=== PATIENT | male | born 1955 | race African-American/Black ===

== ENCOUNTER 2017-04-16 18:31 | Observation (INO) | payer SELFPAY ==
[~2017-04-16] VITALS: Ht 170.2 cm; Wt 50.0 kg
[~2017-04-16 18:31] MED LIST: AMIO200T PO; Aspirin Chew PO; CARV6.25 PO; FERR325T PO; FURO1TAB60 PO; LIPI80TA PO; PLAV75TA29 PO; POTA-163 PO; THERM PO
[2017-04-16 18:32] VITALS: O2SAT 99
[2017-04-16 19:21] VITALS: BP 150/77; PULSE 78; RESP 16; TEMP 98.5; O2SAT 100
--- NOTE | 2017-04-16 19:34 | PD ---
HPI Chief Complaint: syncope Time Seen by Provider: 19:18 Travel History International Travel<30 days: No Contact w/Intl Traveler<30days: No Traveled to known affect area: No History of Present Illness HPI 62-year-old male came to the emergency room with history of recurrent syncopal episode. His daughter brought him and was really concerned about him. Patient on the other hand says he falls because his knees buckle out. He says it happens all the time when he stands up quickly. Upon reviewing his past medical history it was noticed that patient had a stent put in along with double vessel bypass surgery less than a year ago. He continues to smoke. He is not taking any of his medications like he supposed to. Upon asking he doesn' t even remember the names of them. He says he takes them when he has money to buy. Interestingly it was noticed that patient is on amiodarone. I am not quite sure the reason for the amiodarone and neither does the patient. He was supposed to follow up with cardiology which she did not since the appointment was in the afternoon and it was too hot. His daughter told me later as I stepped out of the room that patient also drinks a lot. He has been stubborn in spite of the fact he has been passing out with currently doesn't want to come to the emergency room. [facility] Past Medical History Narrative Medical List of his past medical, surgical, social and family history is reviewed from the nursing note. Diminished Hearing: Yes (RIGHT EAR DIMINISHED ) Hypertension: Yes Social History Alcohol Use: Yes (1-2 beers daily) Tobacco Use: Yes Substance Use: No Allergies-Medications (Allergen,Severity, Reaction): Coded Allergies: No Known Allergies (Unverified , 04/16/17) Comments No known drug allergies. Reported Meds & Prescriptions Reported Meds & Active Scripts Active Plavix (Clopidogrel Bisulfate) 75 Mg Tab 75 Mg PO DAILY Lipitor (Atorvastatin Calcium) 80 Mg Tab 80 Mg PO HS Thera M Plus (Multivitamins/Minerals Therapeutic) 1 Tab 1 Tab PO DAILY [Aspirin Chew] 81 MG Chew 81 Mg PO DAILY Narrative Medication List of his home medications reviewed from the nursing note. Review of Systems Except as stated in HPI: all other systems reviewed are Neg Physical Exam Narrative GENERAL: Awake, alert, no obvious distress SKIN: Focused skin assessment warm/dry. HEAD: Atraumatic. Normocephalic. EYES: Pupils equal and round. No scleral icterus. No injection or drainage. ENT: No nasal bleeding or discharge. Mucous membranes pink and moist. NECK: Trachea midline. No JVD. CARDIOVASCULAR: Regular rate and rhythm. No murmur appreciated. RESPIRATORY: No accessory muscle use. Clear to auscultation. Breath sounds equal bilaterally. GASTROINTESTINAL: Abdomen soft, non-tender, nondistended. Hepatic and splenic margins not palpable. MUSCULOSKELETAL: No obvious deformities. No clubbing. No cyanosis. No edema. NEUROLOGICAL: Awake and alert. No obvious cranial nerve deficits. Motor grossly within normal limits. Normal speech. PSYCHIATRIC: Appropriate mood and affect; insight and judgment normal. Data Data Last Documented VS Vital Signs Date Time Temp Pulse Resp B/P (MAP) Pulse Ox O2 Delivery O2 Flow Rate FiO2 04/16/17 22:15 80 18 132/74 (93) 99 Room Air 04/16/17 19:21 98.5 Orders Orders Electrocardiogram (04/16/17 19:46) Basic Metabolic Panel (Bmp) (04/16/17 19:46) Ckmb (Isoenzyme) Profile (04/16/17 19:46) Complete Blood Count With Diff (04/16/17 19:46) Magnesium (Mg) (04/16/17 19:46) Prothrombin Time / Inr (Pt) (04/16/17 19:46) Act Partial Throm Time (Ptt) (04/16/17 19:46) Troponin I (04/16/17 19:46) Chest, Single Ap (04/16/17 19:46) Ecg Monitoring (04/16/17 19:46) Bilateral Bp Monitoring (04/16/17 19:46) Iv Access Insert/Monitor (04/16/17 19:46) Oximetry (04/16/17 19:46) Oxygen Administration (04/16/17 19:46) Sodium Chloride 0.9% Flush (Ns Flush) (04/16/17 20:00) Admit Order (Ed Use Only) (04/16/17 22:34) Labs Laboratory Tests Test 04/16/17 20:05 White Blood Count 4.0 TH/MM3 Red Blood Count 3.22 MIL/MM3 Hemoglobin 11.2 GM/DL Hematocrit 33.6 % Mean Corpuscular Volume 104.4 FL Mean Corpuscular Hemoglobin 34.9 PG Mean Corpuscular Hemoglobin Concent 33.5 % Red Cell Distribution Width 11.6 % Platelet Count 73 TH/MM3 Mean Platelet Volume 10.7 FL Neutrophils (%) (Auto) 64.0 % Lymphocytes (%) (Auto) 22.8 % Monocytes (%) (Auto) 11.8 % Eosinophils (%) (Auto) 0.6 % Basophils (%) (Auto) 0.8 % Neutrophils # (Auto) 2.5 TH/MM3 Lymphocytes # (Auto) 0.9 TH/MM3 Monocytes # (Auto) 0.5 TH/MM3 Eosinophils # (Auto) 0.0 TH/MM3 Basophils # (Auto) 0.0 TH/MM3 CBC Comment AUTO DIFF Differential Comment AUTO DIFF CONFIRMED Prothrombin Time 12.6 SEC Prothromb Time International Ratio 1.1 RATIO Activated Partial Thromboplast Time 28.6 SEC Blood Urea Nitrogen 4 MG/DL Creatinine 1.02 MG/DL Random Glucose 93 MG/DL Calcium Level 8.6 MG/DL Magnesium Level 1.1 MG/DL Sodium Level 132 MEQ/L Potassium Level 3.8 MEQ/L Chloride Level 99 MEQ/L Carbon Dioxide Level 21.4 MEQ/L Anion Gap 12 MEQ/L Estimat Glomerular Filtration Rate 90 ML/MIN Total Creatine Kinase 49 U/L Troponin I LESS THAN 0.02 NG/ML MDM Medical Decision Making Medical Screen Exam Complete: Yes Emergency Medical Condition: Yes Medical Record Reviewed: Yes Interpretation(s) Twelve-lead EKG was reviewed by me. Normal sinus rhythm, normal axis, nonspecific ST-T wave changes. Heart rate of 77 bpm. Differential Diagnosis Cardiac arrhythmia, non-STEMI, electrolyte abnormality Narrative Course 10:15 PM blood test results of back and within normal limit. However given his significant past medical history and noncompliance with his medications that would like to admit the patient overnight for observation on telemetry and if possible to be consulted by cardiology. Awaiting for the hospitalist to call back. Procedures EKG Prior to Arrival: No Diagnosis Primary Impression: Syncopal episodes Qualified Codes: R55 - Syncope and collapse Admitting Information Admitting Physician Requests: Observation Nereida Huddleston MD Apr 16, 2017 19:34
[2017-04-16 19:58] VITALS: O2SAT 100
[2017-04-16] MEDS ORDERED: SODIUM CHLORIDE 0.9% FLUSH 10 ML FLUSH IVF PRN (20:00)
[2017-04-16 20:20] VITALS: BP 138/79; PULSE 74; RESP 18; O2SAT 100
[2017-04-16 20:50] LABS: AUTOMATED NEUTROPHIL # 2.5 TH/MM3 (1.8-7.7); BASOPHIL % 0.8 % (0.0-2.0); EOSINOPHIL % 0.6 % (0.0-4.0); HEMATOCRIT 33.6 % (39.0-51.0); LYMPH % 22.8 % (9.0-44.0); LYMPHOCYTE # 0.9 TH/MM3 (1.0-4.8); MEAN CELL VOLUME 104.4 FL (80.0-100.0); MEAN CORPUSCULAR HEMOGLOBIN 34.9 PG (27.0-34.0); MEAN CORPUSCULAR HGB CONC 33.5 % (32.0-36.0); MONO % 11.8 % (0.0-8.0); PLATELET COUNT 73 TH/MM3 (150-450); RED BLOOD COUNT 3.22 MIL/MM3 (4.50-5.90); RED CELL DISTRIBUTION WIDTH 11.6 % (11.6-17.2)
[2017-04-16 21:02] LABS: APTT (PATIENT) 28.6 SEC (24.3-30.1); HEMO FLAGS AUTO DIFF; INTERNATIONAL NORMALIZED RATIO 1.1 RATIO; PROTHROMBIN TIME - PATIENT 12.6 SEC (9.8-11.6)
--- NOTE | 2017-04-16 21:08 | RADRPT ---
EXAM DATE/TIME: 04/16/2017 19:59 [facility] COMPARISON: CHEST SINGLE AP, August 01, 2016, 5:18. INDICATIONS : Chest pain. MEDICAL HISTORY : Myocardial infarction. Hypertension Coronary artery disease. SURGICAL HISTORY : Double bypass. ENCOUNTER: Initial ACUITY: 1 day PAIN SCORE: 0/10 LOCATION: Bilateral chest FINDINGS: A single view of the chest demonstrates the lungs to be symmetrically aerated without evidence of mas s, infiltrate or effusion. Patient is status post sternotomy. The cardiomediastinal contours are unr emarkable. Osseous structures are intact. CONCLUSION: No acute disease. Alex Alves MD on April 16, 2017 at 21:06 Board Certified Radiologist. This report was verified electronically.
[2017-04-16 21:12] LABS: ANION GAP 12 MEQ/L (5-15); BICARBONATE 21.4 MEQ/L (21.0-32.0); BLOOD UREA NITROGEN 4 MG/DL (7-18); CHLORIDE 99 MEQ/L (98-107); GLOMERULAR FILTRATION RATE 90 ML/MIN (>89); MAGNESIUM 1.1 MG/DL (1.5-2.5); POTASSIUM 3.8 MEQ/L (3.5-5.1); SODIUM (NA) 132 MEQ/L (136-145)
[2017-04-16 21:25] LABS: CREATINE KINASE 49 U/L (39-308)
[2017-04-16 21:30] VITALS: BP 140/72; PULSE 78; RESP 18; O2SAT 100
[2017-04-16 21:38] LABS: SCAN/DIFF AUTO DIFF CONFIRMED
[2017-04-16 22:15] VITALS: BP 132/74; PULSE 80; RESP 18; O2SAT 99
[2017-04-16] MEDS ORDERED: NALOXONE HCL 0.4 MG/ML AMP IV PRN (22:45)
[2017-04-16] MEDS ORDERED: SODIUM CHLORIDE 0.9% FLUSH 10 ML FLUSH IV FLUSH PRN (22:45)
[2017-04-16] MEDS: MAGNESIUM SULFATE 1 GM PREMIX 100 ML IV SCH ×2 (23:25→23:45)
--- NOTE | 2017-04-16 23:33 | RADRPT ---
EXAM DATE/TIME: 04/16/2017 22:48 [facility] COMPARISON: US CAROTID ARTERIES, July 24, 2016, 14:32. INDICATIONS : Syncope. MEDICAL HISTORY : Myocardial infarction. Hypertension. Hearing in right ear diminished. SURGICAL HISTORY : Cardiac catheterization. ENCOUNTER: Subsequent ACUITY: 1 day PAIN SCORE: 0/10 LOCATION: Bilateral neck PEAK SYSTOLIC VELOCITIES (cm/sec): ICA/CCA RATIO: Right: 1.6 Left: 1.2 ICA: Right: 88 Left: 83 CCA: Right: 70 Left: 74 ECA: Right: 60 Left: 91 VERTEBRAL: Right: 38 antegrade Left: 34 antegrade Elevated flow velocities and ICA/CCA ratios have been found to correlate with increased degrees of vessel stenosis, calculated as percentage of diameter relative to a normal segment of distal ICA/CCA FINDINGS: RIGHT CAROTID: There is mild calcified and noncalcified plaque throughout the common carotid artery and a moderate c alcified plaque in the proximal internal carotid artery. LEFT CAROTID: There is mild to moderate calcified plaque in the carotid bulb. There is an small thickening in the c ommon carotid artery. VERTEBRAL ARTERIES: Antegrade flow is seen in both vertebral arteries. MISCELLANEOUS: None. CONCLUSION: 1. Mild/moderate atherosclerotic disease bilaterally, as above. However, no significant stenosis is i dentified within either internal carotid artery (less than 50% stenosis). 2. There is antegrade blood flow within both vertebral arteries. Alex Reyes MD on April 16, 2017 at 23:29 Board Certified Radiologist. This report was verified electronically.
[2017-04-17] VITALS (8 sets, daily range): BP systolic 98–126; BP diastolic 58–74; PULSE 70–78; RESP 16–17; TEMP 97.4–98.6; O2SAT 96–100
[2017-04-17 02:21] LABS: CREATINE KINASE 44 U/L (39-308)
--- NOTE | 2017-04-17 05:16 | HHI.HP ---
[facility] No Primary Care Physician Admission Diagnosis syncope Diagnoses: Chief Complaint: fall at home Travel History International Travel<30 Days: No Contact w/Intl Traveler <30 Da: No Traveled to Known Affected Are: No History of Present Illness Written by SAMPSON Parisi acting as scribe for [Harlan] on 04/17/17 at 05: 09. 62 y/o male with a history of HTN, [place], presented to the ED after a fall at home. He states he woke up and got out of bed to fast and he fell. Denies any loc or hitting his head. Prior to fall he denies any chest pain, dizziness or sob. He takes multiple medications at home but does not know the names or reason he takes them. He denies any fever, chills, dysuria or headaches. He states he has not follow up with any doctors. 07/2016 echo showed EF 50-55%, mild tricuspid regurgitation Review of Systems Except as stated in HPI: all other systems reviewed are Neg Past Family Social History Past Medical History HTN MA Past Surgical History CABG Reported Medications Reported Meds & Active Scripts Active Plavix (Clopidogrel Bisulfate) 75 Mg Tab 75 Mg PO DAILY Coreg (Carvedilol) 6.25 Mg Tab 6.25 Mg PO BID Lipitor (Atorvastatin Calcium) 80 Mg Tab 80 Mg PO HS Amiodarone (Amiodarone HCl) 200 Mg Tab 200 Mg PO Q12HR Thera M Plus (Multivitamins/Minerals Therapeutic) 1 Tab 1 Tab PO DAILY [Aspirin Chew] 81 MG Chew 81 Mg PO DAILY Allergies: Coded Allergies: No Known Allergies (Unverified , 04/16/17) Active Ordered Medications Current Medications Medications (Trade) Dose Ordered Sig/Curt Route Start Time Stop Time Status Last Admin (NS Flush) 2 ml UNSCH PRN IV FLUSH 04/16/17 22:45 (NS Flush) 2 ml BID IV FLUSH 04/17/17 09:00 (Narcan Inj) 0.4 mg UNSCH PRN IV 04/16/17 22:45 Family History Patient denies any family history, no heart disease or cancer. Social History Tobacco use: 1/2 PPD Alcohol use: 3-4 Beer daily Illicit drug use: Denies Physical Exam Vital Signs Vital Signs Date Time Temp Pulse Resp B/P (MAP) Pulse Ox O2 Delivery O2 Flow Rate FiO2 04/17/17 01:58 70 04/17/17 00:05 97.8 73 17 112/72 (85) 99 04/16/17 23:40 04/16/17 20:20 74 18 138/79 (98) 100 Room Air 04/16/17 19:59 100 Room Air 04/16/17 19:58 100 Room Air 04/16/17 19:21 98.5 78 16 150/77 (101) 100 04/16/17 18:32 128 36 99 Room Air Physical Exam GENERAL: This is a well-nourished, grumpy man, who does not want to be bothered. SKIN: No rashes, ecchymoses or lesions. Cool and dry. HEAD: Atraumatic. Normocephalic. EYES: Pupils equal round and reactive. ENT: Nose without bleeding, purulent drainage or septal hematoma. Airway patent. NECK: Trachea midline. No JVD or lymphadenopathy. CARDIOVASCULAR: Regular rate and rhythm without murmurs, gallops, or rubs. RESPIRATORY: Clear to auscultation. Breath sounds equal bilaterally. No wheezes , rales, or rhonchi. GASTROINTESTINAL: Abdomen soft, non-tender, nondistended. No hepato-splenomegaly , or palpable masses. No guarding. MUSCULOSKELETAL: Extremities without clubbing, cyanosis, or edema. No joint tenderness, effusion, or edema noted. No calf tenderness. NEUROLOGICAL: Awake and alert. Motor and sensory grossly within normal limits. Normal speech. Laboratory Laboratory Tests Test 04/16/17 20:05 04/17/17 01:45 White Blood Count 4.0 Red Blood Count 3.22 Hemoglobin 11.2 Hematocrit 33.6 Mean Corpuscular Volume 104.4 Mean Corpuscular Hemoglobin 34.9 Mean Corpuscular Hemoglobin Concent 33.5 Red Cell Distribution Width 11.6 Platelet Count 73 Mean Platelet Volume 10.7 Neutrophils (%) (Auto) 64.0 Lymphocytes (%) (Auto) 22.8 Monocytes (%) (Auto) 11.8 Eosinophils (%) (Auto) 0.6 Basophils (%) (Auto) 0.8 Neutrophils # (Auto) 2.5 Lymphocytes # (Auto) 0.9 Monocytes # (Auto) 0.5 Eosinophils # (Auto) 0.0 Basophils # (Auto) 0.0 CBC Comment AUTO DIFF Differential Comment AUTO DIFF CONFIRMED Prothrombin Time 12.6 Prothromb Time International Ratio 1.1 Activated Partial Thromboplast Time 28.6 Blood Urea Nitrogen 4 Creatinine 1.02 Random Glucose 93 Calcium Level 8.6 Magnesium Level 1.1 Sodium Level 132 Potassium Level 3.8 Chloride Level 99 Carbon Dioxide Level 21.4 Anion Gap 12 Estimat Glomerular Filtration Rate 90 Total Creatine Kinase 49 44 Troponin I LESS THAN 0.02 LESS THAN 0.02 Result Diagram: 04/16/17200404/16/172004 Imaging Last Impressions Chest X-Ray 04/16/17 194 Signed Impressions: Service Date/Time: March 19:59 - CONCLUSION: No acute disease. Alex Alves MD Carotid Artery Ultrasound 04/16/17 0000 Signed Impressions: Service Date/Time: March 22:48 - CONCLUSION: 1. Mild/moderate atherosclerotic disease bilaterally, as above. However, no significant stenosis is identified within either internal carotid artery (less than 50%% stenosis). 2. There is antegrade blood flow within both vertebral arteries. MD Mary Denis VTE Risk Assessment Mary VTE Risk Assessment: Mod/High Risk (score >= 2) Caprini Risk Assessment Model Point Value = 1 Point Value = 2 Point Value = 3 Point Value = 5 Age 41-60 Minor surgery BMI > 25 kg/m2 Swollen legs Varicose veins or History of unexplained or recurrent spontaneous Oral contraceptives or hormone replacement Sepsis (< 1 month) Serious lung disease, including pneumonia (< 1 month) Abnormal pulmonary function Acute myocardial infarction Congestive heart failure (< 1 month) History of inflammatory bowel disease Medical patient at bed rest Age 61-74 Arthroscopic surgery Major open surgery (> 45 min) Laparoscopic surgery (> 45 min) Malignancy Confined to bed (> 72 hours) Immobilizing plaster cast Central venous access Age >= 75 History of VTE Family history of VTE Factor V Leiden Prothrombin [id number] Lupus anticoagulant Anticardiolipin antibodies Elevated serum homocysteine Heparin-induced thrombocytopenia Other congenital or acquired thrombophilia Stroke (< 1 month) Elective arthroplasty Hip, pelvis, or leg fracture Acute spinal cord injury (< 1 month) Prophylaxis Regimen Total Risk Factor Score Risk Level Prophylaxis Regimen 0-1 Low Early ambulation 2 Moderate Order ONE of the following: *Sequential Compression Device (SCD) *Heparin 5000 units SQ BID 3-4 Higher Order ONE of the following medications: *Heparin 5000 units SQ TID *Enoxaparin/Lovenox 40 mg SQ daily (WT < 150 kg, CrCl > 30 mL/min) *Enoxaparin/Lovenox 30 mg SQ daily (WT < 150 kg, CrCl > 10-29 mL/min) *Enoxaparin/Lovenox 30 mg SQ BID (WT < 150 kg, CrCl > 30 mL/min) AND/OR *Sequential Compression Device (SCD) 5 or more Highest Order ONE of the following medications: *Heparin 5000 units SQ TID (Preferred with Epidurals) *Enoxaparin/Lovenox 40 mg SQ daily (WT < 150 kg, CrCl > 30 mL/min) *Enoxaparin/Lovenox 30 mg SQ daily (WT < 150 kg, CrCl > 10-29 mL/min) *Enoxaparin/Lovenox 30 mg SQ BID (WT < 150 kg, CrCl > 30 mL/min) AND *Sequential Compression Device (SCD) Assessment and Plan Problem List: (1) Syncopal episodes ICD Code: R55 - Syncope and collapse Status: Acute (2) Tobacco abuse ICD Code: Z72.0 - Tobacco use Status: Acute Assessment and Plan 62 y/o male with a history of HTN, MA, presented to the ED after a fall at home. He states he woke up and got out of bed to fast and he fell. Syncope, acute, troponin .02 x 2 EKG reviewed and shows NSR -2D echo ordered -Carotid US ordered, reviewed, and shows mild/moderate atherosclerotic disease bilaterally no significant stenosis. -Consult cardiology for recommendations on medications -Third troponin pending -Serial EKGs Hypomagnesium, mag 1.1 -Supplementation ordered, trend magnesium replace as needed Tobacco abuse, chronic -Counseled on quitting Chronic medical conditions: Will reorder home Meds once they are verified with family DVT prophylaxis: Lovenox This note was transcribed by marco [Gavi Carrasco]. I, Dr. Haleigh Claros personally performed the history, physical exam, and medical decision making; and confirmed the accuracy of the information in the transcribed note. Authenticated by Dr. Haleigh Claros on 04/17/17 at 05:09. Discussed Condition With Patient and ED physician Problem Qualifiers (1) Syncopal episodes: Qualified Codes: R55 - Syncope and collapse Gavi Carrasco Apr 17, 2017 05:16 Haleigh Claros MD Apr 17, 2017 09:40
[2017-04-17] MEDS ORDERED: ENOXAPARIN SODIUM 40 MG/0.4 ML SYRINGE SQ SCH (07:00)
[2017-04-17] MEDS ORDERED: SODIUM CHLORIDE 0.9% FLUSH 10 ML FLUSH IV FLUSH SCH (09:00)
[2017-04-17 09:03] LABS: BASOPHIL % 0.5 % (0.0-2.0); EOSINOPHIL % 0.9 % (0.0-4.0); LYMPH % 16.8 % (9.0-44.0); LYMPHOCYTE # 0.7 TH/MM3 (1.0-4.8); MEAN CELL VOLUME 104.2 FL (80.0-100.0); MEAN CORPUSCULAR HEMOGLOBIN 35.6 PG (27.0-34.0); MEAN CORPUSCULAR HGB CONC 34.2 % (32.0-36.0); MONO % 8.4 % (0.0-8.0); NEUT % 73.4 % (16.0-70.0); PLATELET COUNT 65 TH/MM3 (150-450); RED BLOOD COUNT 3.27 MIL/MM3 (4.50-5.90); RED CELL DISTRIBUTION WIDTH 11.7 % (11.6-17.2); WHITE BLOOD COUNT 4.1 TH/MM3 (4.0-11.0)
[2017-04-17 09:05] LABS: HEMO FLAGS AUTO DIFF
[2017-04-17 09:25] LABS: BICARBONATE 23.1 MEQ/L (21.0-32.0); POTASSIUM 3.6 MEQ/L (3.5-5.1)
[2017-04-17] MEDS ORDERED: ASPIRIN 81 MG CHEW TAB CHEW SCH (09:30)
[2017-04-17] MEDS ORDERED: SODIUM CHLOR 0.9% 1000 ML INJ 1,000 ML IV ONE (09:30)
[2017-04-17 10:13] LABS: SCAN/DIFF AUTO DIFF CONFIRMED
[2017-04-17 11:53] LABS: MAGNESIUM 1.8 MG/DL (1.5-2.5)
[2017-04-17 11:55] LABS: CREATINE KINASE 45 U/L (39-308)
--- NOTE | 2017-04-17 11:55 | HHI.PR ---
Subjective Remarks Follow-up for near syncope. The patient states that he has no complaints and there is nothing wrong with him. He states that he stood up too quickly and went down to his knees. He denies having any lightheadedness or dizziness with that. He states because he felt his knees his daughters thought that he might of passed out, but he adamantly denies passing out or losing consciousness. He denies any injury from falling. He denies any chest pain or shortness of breath. He was found to be orthostatic. He denies any reason why he might be dehydrated; no nausea, vomiting, diarrhea. Patient denies any having any symptoms, specifically lightheaded and dizziness, when getting out of bed with PT today. Objective Vitals Vital Signs Date Time Temp Pulse Resp B/P (MAP) Pulse Ox O2 Delivery O2 Flow Rate FiO2 04/17/17 11:21 98.5 72 16 109/69 (82) 96 04/17/17 10:55 75 04/17/17 07:50 98.6 75 16 119/74 (89) 96 106/63 (77) 98/67 (77) 04/17/17 07:19 98.3 78 16 111/66 (81) 100 04/17/17 05:30 97.4 71 17 105/58 (74) 99 04/17/17 01:58 70 04/17/17 00:05 97.8 73 17 112/72 (85) 99 04/16/17 23:40 04/16/17 22:15 80 18 132/74 (93) 99 Room Air 04/16/17 21:30 78 18 140/72 (94) 100 Room Air 04/16/17 20:20 74 18 138/79 (98) 100 Room Air 04/16/17 19:59 100 Room Air 04/16/17 19:58 100 Room Air 04/16/17 19:21 98.5 78 16 150/77 (101) 100 04/16/17 18:32 128 36 99 Room Air Result Diagram: 04/17/17 0835 04/17/17 0835 Imaging Last Impressions Chest X-Ray 04/16/171945 Signed Impressions: Service Date/Time: March 19:59 - CONCLUSION: No acute disease. Alex Alves MD Carotid Artery Ultrasound 04/16/17 0000 Signed Impressions: Service Date/Time: March 22:48 - CONCLUSION: 1. Mild/moderate atherosclerotic disease bilaterally, as above. However, no significant stenosis is identified within either internal carotid artery (less than 50%% stenosis). 2. There is antegrade blood flow within both vertebral arteries. Alex Reyes MD Objective Remarks GENERAL: Well-developed well-nourished. In no acute distress. SKIN: Warm and dry. No lesions noted. HEENT: Normocephalic. Pupils equal and round. Mucous membranes pink and moist. CARDIOVASCULAR: Regular rate and rhythm. No murmur appreciated. RESPIRATORY: No accessory muscle use. Clear to auscultation. Breath sounds equal bilaterally. GASTROINTESTINAL: Abdomen soft, non-tender, nondistended. Bowel sounds x4. MUSCULOSKELETAL: No obvious deformities. No clubbing or cyanosis. No edema. NEUROLOGICAL: Awake and alert. No focal neurological deficits. Moves upper and lower extremities spontaneously. Normal speech. PSYCHIATRIC: Cantankerous mood and affect; insight and judgment normal. A/P Problem List: (1) Syncopal episodes ICD Code: R55 - Syncope and collapse Status: Acute (2) Tobacco abuse ICD Code: Z72.0 - Tobacco use Status: Chronic Assessment and Plan 62 y/o male with a history of HTN, [place], presented to the ED after a fall at home. He states he woke up and got out of bed to fast and he fell. Near syncope: Symptoms sound like orthostasis. The patient was found to have positive orthostatic vital signs. He denies any lightheadedness, dizziness, chest pain, shortness of breath. Reviewed: EKG shows NSR. Carotid US shows mild/moderate atherosclerotic disease bilaterally no significant stenosis. Troponins negative 3. -Cardiology consulted, discussed with, no specific recommendations -Give IVF bolus and follow-up orthostatic vital signs. Counseled on slow transitions. -PT consulted, no restrictions History coronary artery disease: Question medication compliance. -Discussed with Dr. Salinas, would at least continue the patient on aspirin and statin -Hold further BP meds with orthostasis. Hypomagnesium, mag 1.1 -Given IV magnesium and level improved to normal limits, 1.8 Tobacco abuse, chronic -Counseled on quitting DVT prophylaxis: Lovenox Discharge Planning Repeat orthostatic vital signs after IVF and likely discharge home. 1230 orthostatics not improved with IVF although the patient is symptomatically improved. Counseled on slow transitions. Would recommend compression stockings. As the patient is asymptomatic and workup has remained negative, will discharge home today for outpatient follow-up with PCP and cardiology. Problem Qualifiers (1) Syncopal episodes: Qualified Codes: R55 - Syncope and collapse Alban Silveira Apr 17, 2017 11:55
--- NOTE | 2017-04-17 16:06 | MB ---
cc: RAJEEV SMITH MD DATE OF CONSULTATION 04/17/17 HISTORY OF PRESENT ILLNESS This is a 62-year-old gentleman who is admitted to the hospital after suffering a fall. He was felt initially to have syncope and that is why we have been asked to see him. However, he adamantly denies any loss of consciousness. He notes that he was getting out of bed, lost his balance and fell on the floor. He was not injured and has felt well. His laboratory investigations since his admission to the hospital has been unremarkable. Carotid Dopplers were normal and his chest x-ray was equally unremarkable. He does have a history of bypass grafting in July of this past year and this is thus far been uncomplicated. PHYSICAL EXAMINATION GENERAL: He is awake and alert. He is in no distress. VITAL SIGNS: Blood pressure was 106/60, pulse is 70. NECK: There is no neck vein distension. LUNGS: Clear. CARDIOVASCULAR: Exam is essentially normal. ASSESSMENT/PLAN The patient has had a fall with no evidence for loss of consciousness according to the patient. He should be okay to be discharged with follow up with his regular doctor. Rajeev Smith MD DLW/EO /8:37 AM /3:58 PM
--- NOTE | 2017-04-17 20:22 | EKG ---
Date Performed: 04/17/2017 Time Performed: 08:07:20 PTAGE: 62 years EKG: Sinus rhythm WITH SHORT KS INTERVAL BORDERLINE ECG PREVIOUS TRACING : 04/17/2017 02.09 Compared to prior tracing no significant change DOCTOR: Robbin Murray Interpretating Date/Time 04/17/2017 20:19:52
[2017-04-17] MEDS ORDERED: ATORVASTATIN 80 MG TAB PO SCH (21:00)
--- NOTE | 2017-04-18 00:31 | EKG ---
Date Performed: 04/17/2017 Time Performed: 02:09:07 PTAGE: 62 years EKG: Sinus rhythm NORMAL ECG PREVIOUS TRACING : 04/16/2017 19.12 Compared to prior tracing no significant change DOCTOR: Robbin Murray Interpretating Date/Time 04/18/2017 00:29:24
--- NOTE | 2017-04-18 01:02 | EKG ---
Date Performed: 04/16/2017 Time Performed: 19:12:49 PTAGE: 62 years EKG: Sinus rhythm NON-SPECIFIC ST/T WAVE CHANGES PREVIOUS TRACING : 07/29/2016 05.36 Compared to the previous tracing, previous ST/T wave changes are no longer noted DOCTOR: Robbin Murray Interpretating Date/Time 04/18/2017 01:00:43
== END 2017-04-17 13:35 | disposition home or self-care (01) ==
LOC: NEPD 18:31 → NEDA 22:35 → NEPHCDU 23:33
PROVIDERS: ADMIT Family Medicine; ATTEND Family Medicine
DX: R55 Syncope and collapse (principal); I10 Essential (primary) hypertension; E83.42 Hypomagnesemia; F17.200 Nicotine dependence, unspecified, uncomplicated; I25.10 Atherosclerotic heart disease of native coronary artery without angina pectoris; Z95.1 Presence of aortocoronary bypass graft; Z91.14 Patient's other noncompliance with medication regimen; W01.0XXA Fall on same level from slipping, tripping and stumbling without subsequent striking against object, initial encounter; Y92.013 Bedroom of single-family (private) house as the place of occurrence of the external cause
CPT/HCPCS: 71010; 80048; 82550; 83735; 84484; 85025; 85610; 85730; 93005; 93880; 96361; 96365; 96366; 97161; 99285; G0378; G8987; G8988; J3475; J7030

== ENCOUNTER 2017-11-09 15:49 | Emergency (ER) | payer SELFPAY ==
[~2017-11-09 15:49] MED LIST changes: -AMIO200T PO; -CARV6.25 PO; -FERR325T PO; -FURO1TAB60 PO; -POTA-163 PO
[2017-11-09 16:09] VITALS: BP 131/69; PULSE 101; RESP 18; TEMP 97.6; O2SAT 100
--- NOTE | 2017-11-09 16:45 | RADRPT ---
EXAM DATE/TIME: 11/09/2017 16:32 [facility] COMPARISON: CHEST SINGLE AP, April 16, 2017, 19:59. INDICATIONS : Short of breath MEDICAL HISTORY : Myocardial infarction. Hypertension. Hearing in right ear diminished. SURGICAL HISTORY : CABG. Cardiac catheterization ENCOUNTER: Initial ACUITY: 1 week PAIN SCORE: 0/10 LOCATION: chest FINDINGS: PA and lateral views of the chest demonstrate the lungs to be symmetrically aerated without evidence of mass, infiltrate or effusion. The cardiomediastinal contours are unremarkable. Osseous structure s are intact. The patient is status post median sternotomy. Mild atherosclerotic changes present in t he aorta. CONCLUSION: No acute disease. Shelton Solorzano MD on November 09, 2017 at 16:42 Board Certified Radiologist. This report was verified electronically.
[2017-11-09 17:54] LABS: AUTOMATED NEUTROPHIL # 10.3 TH/MM3 (1.8-7.7); BASOPHIL # 0.1 TH/MM3 (0-0.2); BASOPHIL % 0.5 % (0.0-2.0); EOSINOPHIL % 0.3 % (0.0-4.0); HEMATOCRIT 27.9 % (39.0-51.0); HEMOGLOBIN 9.7 GM/DL (13.0-17.0); LYMPH % 11.4 % (9.0-44.0); LYMPHOCYTE # 1.5 TH/MM3 (1.0-4.8); MEAN CORPUSCULAR HEMOGLOBIN 37.8 PG (27.0-34.0); MEAN CORPUSCULAR HGB CONC 34.7 % (32.0-36.0); MEAN PLATELET VOLUME 10.3 FL (7.0-11.0); NEUT % 79.8 % (16.0-70.0); PLATELET COUNT 110 TH/MM3 (150-450); RED BLOOD COUNT 2.56 MIL/MM3 (4.50-5.90); WHITE BLOOD COUNT 12.9 TH/MM3 (4.0-11.0)
[2017-11-09 18:02] LABS: INTERNATIONAL NORMALIZED RATIO 1.4 RATIO; PROTHROMBIN TIME - PATIENT 14.3 SEC (9.8-11.6)
[2017-11-09 18:10] LABS: ALBUMIN 2.1 GM/DL (3.4-5.0); AST (GOT) 161 U/L (15-37); BICARBONATE 19.9 MEQ/L (21.0-32.0); BLOOD UREA NITROGEN 7 MG/DL (7-18); CALCIUM 8.8 MG/DL (8.5-10.1); CHLORIDE 99 MEQ/L (98-107); CREATININE 1.06 MG/DL (0.60-1.30); GLOMERULAR FILTRATION RATE 86 ML/MIN (>89); GLUCOSE,RANDOM 123 MG/DL (74-106); SODIUM (NA) 131 MEQ/L (136-145)
[2017-11-09 18:11] LABS: ALT (GPT) 48 U/L (12-78)
[2017-11-09 18:15] LABS: ALKALINE PHOSPHATASE 144 U/L (45-117); TOTAL PROTEIN 8.8 GM/DL (6.4-8.2); TROPONIN I 0.03 NG/ML (0.02-0.05)
--- NOTE | 2017-11-09 21:14 | PD ---
HPI Chief Complaint: Medical Clearance Time Seen by Provider: 16:08 Travel History International Travel<30 days: No Contact w/Intl Traveler<30days: No Traveled to known affect area: No History of Present Illness HPI 62-year-old male with history of CAD, CABG last August, presents emergency department with his daughter for evaluation. The daughter states the patient has had shortness of breath since his CABG and it is only getting worse. Patient has a decreased appetite. He is lost a significant amount of weight. She also reports of drinking alcohol and has a yellow appearance to his eyes. Patient denies any pain. States he does not want to be here. PFSH Past Medical History Blood Disorders: No Heart Rhythm Problems: No Cancer: No Cardiovascular Problems: Yes High Cholesterol: No Chemotherapy: No Chest Pain: No Congestive Heart Failure: No Coronary Artery Disease: Yes Diminished Hearing: Yes (RIGHT EAR DIMINISHED ) Endocrine: No Hypertension: Yes Musculoskeletal: No Neurologic: No Psychiatric: No Respiratory: No Radiation Therapy: No Past Surgical History Cardiac Surgery: Yes (double bypass ) Social History Alcohol Use: Yes (1 pack per day ) Tobacco Use: Yes (3-4 daily ) Substance Use: No Allergies-Medications (Allergen,Severity, Reaction): Coded Allergies: No Known Allergies (Unverified , 04/16/17) Reported Meds & Prescriptions Reported Meds & Active Scripts Active Plavix (Clopidogrel Bisulfate) 75 Mg Tab 75 Mg PO DAILY Lipitor (Atorvastatin Calcium) 80 Mg Tab 80 Mg PO HS Thera M Plus (Multivitamins/Minerals Therapeutic) 1 Tab 1 Tab PO DAILY [Aspirin Chew] 81 MG Chew 81 Mg PO DAILY Review of Systems Except as stated in HPI: all other systems reviewed are Neg Physical Exam Narrative Chronically ill-appearing male patient, sitting in wheelchair, no acute distress. Slight scleral icterus. He does have even respirations. He has a tachycardic heart rate. He has no obvious deformities. He does speak to me clearly. Data Data Last Documented VS Vital Signs Date Time Temp Pulse Resp B/P (MAP) Pulse Ox O2 Delivery O2 Flow Rate FiO2 11/09/17 16:09 97.6 101 18 131/69 (89) 100 Orders Orders Electrocardiogram (11/09/17 16:13) Ckmb (Isoenzyme) Profile (11/09/17 16:13) Complete Blood Count With Diff (11/09/17 16:13) Comprehensive Metabolic Panel (11/09/17 16:13) Prothrombin Time / Inr (Pt) (11/09/17 16:13) Act Partial Throm Time (Ptt) (11/09/17 16:13) Troponin I (11/09/17 16:13) Lipase (11/09/17 16:13) Chest, Pa & Lat (11/09/17 16:13) Labs Laboratory Tests Test 11/09/17 17:12 White Blood Count 12.9 TH/MM3 Red Blood Count 2.56 MIL/MM3 Hemoglobin 9.7 GM/DL Hematocrit 27.9 % Mean Corpuscular Volume 109.0 FL Mean Corpuscular Hemoglobin 37.8 PG Mean Corpuscular Hemoglobin Concent 34.7 % Red Cell Distribution Width 17.0 % Platelet Count 110 TH/MM3 Mean Platelet Volume 10.3 FL Neutrophils (%) (Auto) 79.8 % Lymphocytes (%) (Auto) 11.4 % Monocytes (%) (Auto) 8.0 % Eosinophils (%) (Auto) 0.3 % Basophils (%) (Auto) 0.5 % Neutrophils # (Auto) 10.3 TH/MM3 Lymphocytes # (Auto) 1.5 TH/MM3 Monocytes # (Auto) 1.0 TH/MM3 Eosinophils # (Auto) 0.0 TH/MM3 Basophils # (Auto) 0.1 TH/MM3 CBC Comment DIFF FINAL Differential Comment Prothrombin Time 14.3 SEC Prothromb Time International Ratio 1.4 RATIO Activated Partial Thromboplast Time 33.1 SEC Blood Urea Nitrogen 7 MG/DL Creatinine 1.06 MG/DL Random Glucose 123 MG/DL Total Protein 8.8 GM/DL Albumin 2.1 GM/DL Calcium Level 8.8 MG/DL Alkaline Phosphatase 144 U/L Aspartate Amino Transf (AST/SGOT) 161 U/L Alanine Aminotransferase (ALT/SGPT) 48 U/L Total Bilirubin 6.0 MG/DL Sodium Level 131 MEQ/L Potassium Level 3.5 MEQ/L Chloride Level 99 MEQ/L Carbon Dioxide Level 19.9 MEQ/L Anion Gap 12 MEQ/L Estimat Glomerular Filtration Rate 86 ML/MIN Total Creatine Kinase 52 U/L Troponin I 0.03 NG/ML Lipase 784 U/L MDM Medical Decision Making Medical Screen Exam Complete: Yes Emergency Medical Condition: Yes Medical Record Reviewed: Yes Differential Diagnosis Electrolyte abnormality versus CHF versus arrhythmia versus pneumonia versus pancreatitis versus liver disease Narrative Course 62-year-old male presents emergency department for evaluation. Patient appears nontoxic. Slightly tachycardic. He has no obvious focal deficits. Workup is initiated. Prior to bed placement, patient chooses to leave. AMA: The risks of leaving against medical advice without further evaluation treatment were discussed with the patient. These risks include cardiac dysfunction, cardiac dysrhythmia, possible heart attack, possible stroke or . The patient indicated understanding of these risks and appeared to have the capacity to make this decision. Diagnosis Primary Impression: Shortness of breath Patient Instructions: General Instructions Departure Forms: Tests/Procedures Disposition: 07 AGAINST MEDICAL ADVICE Condition: Stable LuceroDina núñez SAMPSON Nov 09, 2017 21:14
--- NOTE | 2017-11-10 16:29 | EKG ---
Date Performed: 11/09/2017 Time Performed: 17:08:54 PTAGE: 62 years EKG: Sinus rhythm NONSPECIFIC ST & T-WAVE ABNORMALITY BORDERLINE ECG PREVIOUS TRACING : 04/17/[address]-T changes are new since prior tracing. Canno t rule out ischemia. DOCTOR: Adolph Longoria Interpretating Date/Time 11/10/2017 16:28:28
== END 2017-11-09 21:12 | disposition left against medical advice (07) ==
LOC: NED 15:49
DX: R06.02 Shortness of breath (principal); I25.10 Atherosclerotic heart disease of native coronary artery without angina pectoris; F17.200 Nicotine dependence, unspecified, uncomplicated; Z79.02 Long term (current) use of antithrombotics/antiplatelets; Z95.1 Presence of aortocoronary bypass graft
CPT/HCPCS: 71046; 80053; 82550; 83690; 84484; 85025; 85610; 85730; 93005; 99285

== ENCOUNTER 2018-06-15 14:56 | Inpatient (IN) ==
[2018-06-15] MEDS ORDERED: Pantoprazole Inj 40 MG Vial IV.PUSH ONE (15:52)
[2018-06-15] MEDS ORDERED: Cefotaxime Inj 2,000 MG in Sodium Chloride 0.9% Inj 100 ML IV.SIG ONE (15:53)
--- NOTE | 2018-06-15 16:21 | ED ---
HPI General Chief complaint: Respiratory Symptoms Stated complaint: SOB/Abd pain Time Seen by Provider: 06/15/18 15:35 History of Present Illness HPI narrative: Patient presents to the emergency department complaining of shortness of breath, "bloating," blood in urine and stool. Patient states that he had dark blood in his stool that was noticed Thursday and continued until yesterday. Is never had this before and denies having a history of colonoscopy. Reporting hematuria and increased urinary frequency but no dysuria. Per his daughter he is supposed to get paracentesis secondary to liver cirrhosis every 2 months the last time was the end of January/the first part of February. He reports some shortness of breath and chills and diffuse chest pain. He denies fever, nausea, vomiting, aspirin or Motrin or blood thinner use , and he also denies abdominal pain. Patient status post CABG and has a history of hypertension PA, EF supposedly 50-55% in 2016. Related Data Home Medications Medication Instructions Recorded Confirmed No Known Home Medications 06/15/18 06/15/18 Allergies Allergy/AdvReac Type Severity Reaction Status Date / Time No Known Allergies Allergy Verified 06/15/18 15:06 Review of Systems ROS: all other systems reviewed are negative [facility] Social History Social History Substance History: No History of Abuse Smoking Status: Former smoker How Often Do You Have a Drink Containing Alcohol: 4 or more times a week Recent Travel in [facility] within the Last 8 Weeks: No Recent Out of Country Travel within the Last 8 Weeks: No Immunization History Tetanus Immunization: <5 Years Exam Narrative Exam Narrative: GENERAL: Slight respiratory distress. SKIN: Focused skin assessment warm/dry. HEAD: Atraumatic. Normocephalic. EYES: Pupils equal and round. No scleral icterus. No injection or drainage. ENT: No nasal bleeding or discharge. Mucous membranes pink and moist. NECK: Trachea midline. No JVD. CARDIOVASCULAR: Regular rate and rhythm. No murmur appreciated. RESPIRATORY: Tachypneic. Decreased breath sounds bilaterally. Mild wheezing bilaterally. GASTROINTESTINAL: Abdomen tender and distended. Rectal: Brown stool, trace positive : scrotal edema MUSCULOSKELETAL: No obvious deformities. No clubbing. No cyanosis. No edema. NEUROLOGICAL: Awake and alert. No obvious cranial nerve deficits. Motor grossly within normal limits. Normal speech. PSYCHIATRIC: Appropriate mood and affect; insight and judgment normal. Course Initial Documented Vital Signs Temperature 97.4 F L 10/30/18 15:01 Pulse Rate 96 H 06/15/18 15:01 Respiratory Rate 24 06/15/18 15:01 Blood Pressure 153/86 H 06/15/18 15:01 Pulse Oximetry 92 L 06/15/18 15:01 Last Documented Vital Signs Temperature 97.4 F L 06/15/18 15:01 Pulse Rate 89 06/15/18 18:05 Respiratory Rate 26 H 06/15/18 18:05 Blood Pressure 136/76 06/15/18 18:05 Pulse Oximetry 100 06/15/18 18:05 Medical Decision Making MDM Narrative Medical decision making narrative: Patient therefore given Rocephin 1 g IV and 40 mg IV Protonix.Patient presents to the emergency department with shortness of breath, abdominal distention, and blood in urine and stool. Patient placed on cardiac cath lab radiology technologist, continuous pulse ox, and IV access obtained. Room air sat of 90%, therefore patient placed on 3 L of oxygen via nasal cannula and O2 sat increased to 100%. Labs, EKG, chest x-ray ordered. Cefotaxime 2 g IV ordered, but per pharmacist we do not have in the hospital. Patient given 1 gram IV rocephin. Discussed with IR, Dr Ornelas about doing paracentesis/thoracentesis. Labs were pending at the time of my call, advised that INR should be <2 and PLT >50. He would tell Dr Reyes, automotive salesperson IR, about the patient if it was needed urgently after labs come back and I discuss with hospitalist. Hospitalist is requesting procedure today, which he has discussed with Dr Reyes. Patient has been admitted. Given 40MEQ KCL po. Medical Screen Exam Complete: Yes Emergency Medical Condition: Yes Lab Data Result diagrams: 06/15/18 15:54 06/15/18 15:54 Lab Results 06/15/18 06/15/18 06/15/18 Range/Units 15:54 15:54 15:54 WBC 6.5 (4.0-11.0) th/mm3 RBC 2.63 L (4.50-5.90) mil/mm3 Hgb 10.0 L (13.0-17.0) gm/dL Hct 29.7 L (39.0-51.0) % MCV 113.0 H (80.0-100.0) fL MCH 38.1 H (27.0-34.0) pg MCHC 33.7 (32.0-36.0) % RDW 14.7 (11.6-17.2) % Plt Count 96 L (150-450) th/mm3 MPV 9.7 (7.0-11.0) fL Prelim Diff (Auto) Slide review pending Neut % (Auto) 66.1 (16.0-70.0) % Lymph % (Auto) 19.2 (9.0-44.0) % Navarro % (Auto) 12.5 H (0.0-8.0) % Eos % (Auto) 1.6 (0.0-4.0) % Baso % (Auto) 0.6 (0.0-2.0) % Neut # (Auto) 4.3 (1.8-7.7) th/mm3 Lymph # (Auto) 1.3 (1.0-4.8) th/mm3 Navarro # (Auto) 0.8 (0.0-0.9) th/mm3 Eos # (Auto) 0.1 (0.0-0.4) th/mm3 Baso # (Auto) 0.0 (0.0-0.2) th/mm3 WBC Differential . Diff Scan Auto diff confirmed Differential Comment . Platelet Estimate Low L (Normal) Platelet Morphology Normal (Normal) Ovalocytes 1+ H (None) Janes Cells 1+ H (None) PT (9.8-11.6) sec INR Ratio APTT (24.3-30.1) sec Sodium 143 (136-145) meq/L Potassium 2.9 L* (3.5-5.1) meq/L Chloride 109 H (98-107) meq/L Carbon Dioxide 24.1 (21.0-32.0) meq/L Anion Gap 10 (5-15) meq/L BUN 13 (7-18) mg/dL Creatinine 1.35 H (0.60-1.30) mg/dL Estimated GFR 65 L (>89) mL/min Random Glucose 84 (74-106) mg/dL Lactic Acid (0.4-2.0) mmol/L Calcium 8.6 (8.5-10.1) mg/dL Magnesium 1.6 (1.5-2.5) mg/dL Total Bilirubin 4.0 H (0.2-1.0) mg/dL AST 67 H (15-37) U/L ALT 18 (12-78) U/L Alkaline Phosphatase 131 H (45-117) U/L Total Creatine Kinase 120 (39-308) U/L CK-MB (CK-2) 2.3 (0.5-3.6) ng/mL Troponin I 0.04 (0.02-0.05) ng/mL B-Natriuretic Peptide 434 H (0-100) pg/mL Total Protein 8.6 H (6.4-8.2) g/dL Albumin 1.6 L (3.4-5.0) g/dL 06/15/18 06/15/18 Range/Units 16:05 16:33 WBC (4.0-11.0) th/mm3 RBC (4.50-5.90) mil/mm3 Hgb (13.0-17.0) gm/dL Hct (39.0-51.0) % MCV (80.0-100.0) fL MCH (27.0-34.0) pg MCHC (32.0-36.0) % RDW (11.6-17.2) % Plt Count (150-450) th/mm3 MPV (7.0-11.0) fL Prelim Diff (Auto) Neut % (Auto) (16.0-70.0) % Lymph % (Auto) (9.0-44.0) % Navarro % (Auto) (0.0-8.0) % Eos % (Auto) (0.0-4.0) % Baso % (Auto) (0.0-2.0) % Neut # (Auto) (1.8-7.7) th/mm3 Lymph # (Auto) (1.0-4.8) th/mm3 Navarro # (Auto) (0.0-0.9) th/mm3 Eos # (Auto) (0.0-0.4) th/mm3 Baso # (Auto) (0.0-0.2) th/mm3 WBC Differential Diff Scan Differential Comment Platelet Estimate (Normal) Platelet Morphology (Normal) Ovalocytes (None) Janes Cells (None) PT 19.5 H (9.8-11.6) sec INR 1.9 Ratio APTT 34.8 H (24.3-30.1) sec Sodium (136-145) meq/L Potassium (3.5-5.1) meq/L Chloride (98-107) meq/L Carbon Dioxide (21.0-32.0) meq/L Anion Gap (5-15) meq/L BUN (7-18) mg/dL Creatinine (0.60-1.30) mg/dL Estimated GFR (>89) mL/min Random Glucose (74-106) mg/dL Lactic Acid 2.8 H (0.4-2.0) mmol/L Calcium (8.5-10.1) mg/dL Magnesium (1.5-2.5) mg/dL Total Bilirubin (0.2-1.0) mg/dL AST (15-37) U/L ALT (12-78) U/L Alkaline Phosphatase (45-117) U/L Total Creatine Kinase (39-308) U/L CK-MB (CK-2) (0.5-3.6) ng/mL Troponin I (0.02-0.05) ng/mL B-Natriuretic Peptide (0-100) pg/mL Total Protein (6.4-8.2) g/dL Albumin (3.4-5.0) g/dL Imaging Data Radiologist's impression: Chest X-Ray 06/15/18 15:49 CONCLUSION: Complete opacification of the right hemithorax without evidence of significant volume loss. Mild pulmonary vascular congestion on the left. ECG Data Attestation: I personally reviewed and interpreted this ECG as follows: (Sinus rhythm, right axis deviation, low voltage, T wave inversion in V2, slight ST depression in leads II and lead III, T wave inversion in lead V3 and V4) Discharge Plan Discharge Disposition Patient Disposition: 30 Still Patient Discharge Condition Condition: Stable Discharge Details Diagnosis: Ascites Physicians Team ED Provider: Anali Florian Primary Care Provider: Primary Care Kennai,Moni Attending Provider: Laurel Son Other Providers: Yoshi Vasquez Discharge Interventions Interventions: Vital Signs Last Done: 06/15/18 15:15 Status ED Status: Admitted Patient
[2018-06-15 16:47] LABS: Baso % (Auto) 0.6 % (0.0-2.0); Eos # (Auto) 0.1 th/mm3 (0.0-0.4); Eos % (Auto) 1.6 % (0.0-4.0); Hematocrit 29.7 % (39.0-51.0); Lymph # (Auto) 1.3 th/mm3 (1.0-4.8); Lymph % (Auto) 19.2 % (9.0-44.0); Mean Corpuscular HGB Conc 33.7 % (32.0-36.0); Mean Corpuscular Hemoglobin 38.1 pg (27.0-34.0); Mean Platelet Volume 9.7 fL (7.0-11.0); Mono # (Auto) 0.8 th/mm3 (0.0-0.9); Mono % (Auto) 12.5 % (0.0-8.0); Neut # (Auto) 4.3 th/mm3 (1.8-7.7); Neut % (Auto) 66.1 % (16.0-70.0); Platelet Count 96 th/mm3 (150-450); Red Blood Count 2.63 mil/mm3 (4.50-5.90); Red Cell Distribution Width 14.7 % (11.6-17.2); White Blood Count 6.5 th/mm3 (4.0-11.0)
[2018-06-15 16:56] LABS: Alanine Aminotransferase 18 U/L (12-78); Albumin 1.6 g/dL (3.4-5.0); Alkaline Phosphatase 131 U/L (45-117); Anion Gap 10 meq/L (5-15); Aspartate Aminotransferase 67 U/L (15-37); Blood Urea Nitrogen 13 mg/dL (7-18); Calcium 8.6 mg/dL (8.5-10.1); Carbon Dioxide 24.1 meq/L (21.0-32.0); Chloride 109 meq/L (98-107); Creatine Kinase 120 U/L (39-308); Glomerular Filtration Rate 65 mL/min (>89); Glucose,Random 84 mg/dL (74-106); Magnesium 1.6 mg/dL (1.5-2.5); Sodium 143 meq/L (136-145); Total Protein 8.6 g/dL (6.4-8.2); Troponin I 0.04 ng/mL (0.02-0.05)
[2018-06-15 17:00] LABS: Potassium 2.9 meq/L (3.5-5.1)
[2018-06-15 17:02] LABS: Activated Partial Thrombo Time 34.8 sec (24.3-30.1); INR 1.9 Ratio; Prothrombin Time 19.5 sec (9.8-11.6)
[2018-06-15 17:16] LABS: Creatine Kinase MB 2.3 ng/mL (0.5-3.6)
--- NOTE | 2018-06-15 17:21 | XR ---
EXAM DATE: 06/15/2018 5:17 PM EDT AGE/SEX: 63 years / Male INDICATIONS: Patient extremely short of breath. CLINICAL DATA: This is the patient's initial encounter. Patient reports that signs and symptoms have been present for 3 days and indicates a pain score of 5/10. MEDICAL/SURGICAL HISTORY: . Myocardial infarction. Hypertension. Hearing in right ear diminishe d. CABG. cardiac cath COMPARISON: [facility] – [place], CHEST PA & LAT, 11/09/2017. . FINDINGS: There is complete opacification of the right hemithorax. There are 7 intact sternal wires. There is m ild pulmonary vascular congestion on the left. CONCLUSION: Complete opacification of the right hemithorax without evidence of significant volume loss. Mild pulm onary vascular congestion on the left. Electronically signed by: Sean Holliday MD 06/15/2018 5:20 PM EDT
[2018-06-15 17:24] LABS: Platelet Morphology Normal (Normal)
[2018-06-15 17:27] LABS: Burr Cells 1+; Ovalocytes 1+
[2018-06-15] MEDS: Albumin Human 25% Inj 100 ML IV.SIG SCH ×2 (18:21→21:49)
--- NOTE | 2018-06-15 18:28 | P.HPIM ---
History of Present Illness Primary Care Physician: No Primary Care Physician Chief Complaint: Shortness of breath, abdominal distention History of Present Illness: This patient is a 63-year-old male with a diagnosis of alcoholic liver cirrhosis who presents to our emergency department with complaints of abdominal pain and worsening abdominal distention over the past 2 weeks. He has also been having worsening shortness of breath and has been unable to lie flat and sleep comfortably. Given his symptoms he came into our emergency department for evaluation and care. He denies having any fevers or chills. He denies black stools, he has noticed a minimal amount of on and off blood in his stool, he also states he noticed a pinkish tinge in his urine. He denies chest pain, no diarrhea. The patient denies any history of SBP. He has a poor historian, he does not have any other complaints. Past medical history alcoholic liver cirrhosis Past surgical history patient states he had open heart surgery however he is a poor historian and is not sure what type of surgery he had. Family history noncontributory Social history the patient has a an extensive history of tobacco smoking and alcohol use. His last alcoholic drink was 3 weeks ago. Inpatient Certification: I certify that the inpatient services were ordered in accordance with Medicare regulations governing the order. This includes certification that hospital inpatient services are reasonable and necessary and in the case of services not specified as inpatient-only under 42 CFR 419.22(n), that they are appropriately provided as inpatient services in accordance to with the 2-midnight benchmark under 43 CFR 412.3(e) Estimated Total Length of Stay (Days): 3 Plans for Post Hospital Care: Home Review of Systems All other systems reviewed negative except as stated in HPI [facility] - History History Provided By: Patient, Family Member - Medical History Medical History: Medical History (Last Reviewed 06/15/18 @ 15:15 by Monica Rodriguez RN) COPD (chronic obstructive pulmonary disease) Cirrhosis Myocardial infarct - Surgical History Surgical History: Surgical History (Last Reviewed 06/15/18 @ 15:15 by Monica Rodriguez RN) S/P CABG (coronary artery bypass graft) - Tobacco History Smoking Status: Former smoker - Alcohol History How Often Do You Have a Drink Containing Alcohol: 4 or more times a week - Substance Use History Substance History: No History of Abuse - Travel History Recent Travel in the [facility] Within the Last 8 Weeks: No Recent Travel Out of the Country Within the Last 8 Weeks: No - Immunization History Tetanus Immunization: <5 Years Medications and Allergies Active Medications: Active Medications Albumin Human (Flexbumin 25% Inj) 100 mls @ 60 mls/hr IV.SIG Q100M AARTI Stop: 06/15/18 23:19 Ceftriaxone Sodium 2,000 mg/ (Sodium Chloride) 100 mls @ 200 mls/hr IV.SIG Q24H AARTI Allergies Allergy/AdvReac Type Severity Reaction Status Date / Time No Known Allergies Allergy Verified 06/15/18 15:06 Home Medications Medication Instructions Recorded Confirmed Type No Known Home Medications 06/15/18 06/15/18 History Exam Vital signs: Vital Signs 06/15/18 15:01 06/15/18 15:15 06/15/18 15:18 Temperature 97.4 F L Pulse Rate 96 H 94 H Respiratory Rate 24 26 H Blood Pressure 153/86 H 167/95 H Pulse Oximetry 92 L 91 L 100 Intake & Output 06/14/18 06/15/18 06/15/18 18:59 06:59 18:59 Intake Total 100 / 100 Balance 100 / 100 Weight 56.699 kg Intake: IV 100 / 100 Rocephin Inj 1,000 MG In NS Inj 100 / 100 100 ML @ 200 mls/hr IV.SIG ONCE ONE Rx#:[id number] Narrative: General patient complains of some shortness of breath, he also complains of worsening abdominal distention. HEENT extraocular movements are intact, poor dentition, JVD present Cardiovascular S1-S2 audible, tachycardic Respiratory decreased breath sounds on the right Abdomen distended, tender to palpation in all quadrants. Extremities 1+ pitting edema bilateral lower extremity up to the shins. Neuro patient moves all 4 extremities, sensation is intact bilaterally Results - Labs CBC & Chem 7: 06/15/18 15:54 06/15/18 15:54 Labs: Short CBC 06/15/18 Range/Units 15:54 WBC 6.5 (4.0-11.0) th/mm3 Hgb 10.0 L (13.0-17.0) gm/dL Hct 29.7 L (39.0-51.0) % Plt Count 96 L (150-450) th/mm3 BMP 06/15/18 15:54 Sodium 143 Potassium 2.9 L* Chloride 109 H Carbon Dioxide 24.1 BUN 13 Creatinine 1.35 H Calcium 8.6 Cardiac Enzymes 06/15/18 Range/Units 15:54 Total Creatine Kinase 120 (39-308) U/L CK-MB (CK-2) 2.3 (0.5-3.6) ng/mL Troponin I 0.04 (0.02-0.05) ng/mL Liver Function 06/15/18 Range/Units 15:54 Total Bilirubin 4.0 H (0.2-1.0) mg/dL AST 67 H (15-37) U/L ALT 18 (12-78) U/L Alkaline Phosphatase 131 H (45-117) U/L Albumin 1.6 L (3.4-5.0) g/dL - Imaging Impressions Chest X-Ray 06/15/18 15:49 CONCLUSION: Complete opacification of the right hemithorax without evidence of significant volume loss. Mild pulmonary vascular congestion on the left. Caprini VTE Risk Assessment Caprini VTE Risk Assessment: Moderate/High Risk (score >= 2) Caprini Risk Assessment Model: Point Value = 1 Point Value = 2 Point Value = 3 Point Value = 5 Age 41-60 Minor surgery BMI > 25 kg/m2 Swollen legs Varicose veins or History of unexplained or recurrent spontaneous Oral contraceptives or hormone replacement Sepsis (< 1 month) Serious lung disease, including pneumonia (< 1 month) Abnormal pulmonary function Acute myocardial infarction Congestive heart failure (< 1 month) History of inflammatory bowel disease Medical patient at bed rest Age 61-74 Arthroscopic surgery Major open surgery (> 45 min) Laparoscopic surgery (> 45 min) Malignancy Confined to bed (> 72 hours) Immobilizing plaster cast Central venous access Age >= 75 History of VTE Family history of VTE Factor V Leiden Prothrombin [id number] Lupus anticoagulant Anticardiolipin antibodies Elevated serum homocysteine Heparin-induced thrombocytopenia Other congenital or acquired thrombophilia Stroke (< 1 month) Elective arthroplasty Hip, pelvis, or leg fracture Acute spinal cord injury (< 1 month) Prophylaxis Regimen: Total Risk Factor Score Risk Level Prophylaxis Regimen 0-1 Low Early ambulation 2 Moderate Order ONE of the following: *Sequential Compression Device (SCD) *Heparin 5000 units SQ BID 3-4 Higher Order ONE of the following medications: *Heparin 5000 units SQ TID *Enoxaparin/Lovenox 40 mg SQ daily (WT < 150 kg, CrCl > 30 mL/min) *Enoxaparin/Lovenox 30 mg SQ daily (WT < 150 kg, CrCl > 10-29 mL/min) *Enoxaparin/Lovenox 30 mg SQ BID (WT < 150 kg, CrCl > 30 mL/min) AND/OR *Sequential Compression Device (SCD) 5 or more Highest Order ONE of the following medications: *Heparin 5000 units SQ TID (Preferred with Epidurals) *Enoxaparin/Lovenox 40 mg SQ daily (WT < 150 kg, CrCl > 30 mL/min) *Enoxaparin/Lovenox 30 mg SQ daily (WT < 150 kg, CrCl > 10-29 mL/min) *Enoxaparin/Lovenox 30 mg SQ BID (WT < 150 kg, CrCl > 30 mL/min) AND *Sequential Compression Device (SCD) Assessment and Plan - Plan This patient is a 63-year-old male with a diagnosis of alcoholic liver cirrhosis who presents to our emergency department with complaints of abdominal pain and worsening abdominal distention over the past 2 weeks. He has also been having worsening shortness of breath and has been unable to lie flat and sleep comfortably. Given his symptoms he came into our emergency department for evaluation and care. He denies having any fevers or chills. He denies black stools, he has noticed a minimal amount of on and off blood in his stool, he also states he noticed a pinkish tinge in his urine. He denies chest pain, no diarrhea. The patient denies any history of SBP. 1. Systemic inflammatory response syndrome, possibly SBP 2. Alcoholic liver cirrhosis 3. Acute hypoxic respiratory failure secondary to large right-sided pleural effusion 4. Acute kidney injury likely prerenal with concern for hepatorenal syndrome. The patient presented with the symptoms mentioned above. Patient is tachycardic , labs show pancytopenia likely due to alcoholic liver cirrhosis. He is afebrile, lactate elevated at 2.8. No initiation of IV fluids yet until the patient undergoes paracentesis given the significant amount of fluid in his abdomen and right-sided pleural effusion. Chest x-ray shows complete whiteout on the right side likely fluid from complications of alcoholic liver cirrhosis. His abdomen is distended and tender to palpation. IR has been consulted to evaluate the patient for a paracentesis and possible thoracentesis. Ascites fluid studies including fluid Gram stain, culture, albumin level have been ordered. IV albumin will be given to the patient as there is a suspicion for SBP and the patient will also need a large volume paracentesis. IV antibiotics have been started, blood cultures were collected. Patient was advised to avoid alcohol. Patient is currently on supplemental oxygen with an O2 saturation above 95% on 3 L of oxygen. Patient also has an elevated serum creatinine level. We will monitor his serum creatinine closely. Nephrology will be consulted to evaluate the patient. Recommendations will be appreciated. No pharmacotherapy for DVT prophylaxis as the patient had complaints of some hematuria.
[2018-06-15] MEDS ORDERED: Magnesium Sulfate Inj 4 GM in Dextrose 5% in Water Inj 100 ML IV.SIG ONE ×2 (20:00)
[2018-06-15 20:20] LABS: RBC,Pleural Fluid 66 /mm3 (0-0)
[2018-06-15 20:38] LABS: Basophils,Pleural Fluid 1 %; Lymphocytes,Pleural Fluid 72 %; Neutrophils,Pleural Fluid 16 %
[2018-06-15 23:42] LABS: Bacteria,Urine Rare /hpf; Bilirubin,Urine Negative (Negative); Clarity,Urine Clear (Clear); Color,Urine Amber (Yellw/Straw); Glucose,Urine (UA) Negative (Negative); Hyaline Casts,Urine 1 /lpf (0-3); Leukocyte Esterase,Urine Negative (Negative); Mucus,Urine Few /lpf (Occasional); Nitrite,Urine Negative (Negative); Specific Gravity,Urine 1.018 (1.002-1.035); Squamous Epithelial Cell,Urine 1 /hpf (0-5); Urobilinogen,Urine 4 or Greater mg/dL (Less than 2)
[2018-06-16] MEDS: Albumin Human 25% Inj 100 ML IV.SIG SCH (02:27)
[2018-06-16 06:25] LABS: Baso % (Auto) 0.8 % (0.0-2.0); Eos # (Auto) 0.1 th/mm3 (0.0-0.4); Eos % (Auto) 1.8 % (0.0-4.0); Hematocrit 26.6 % (39.0-51.0); Hemoglobin 9.1 gm/dL (13.0-17.0); Lymph # (Auto) 1.3 th/mm3 (1.0-4.8); Mean Corpuscular HGB Conc 34.2 % (32.0-36.0); Mean Corpuscular Hemoglobin 38.5 pg (27.0-34.0); Mean Corpuscular Volume 112.8 fL (80.0-100.0); Mean Platelet Volume 9.4 fL (7.0-11.0); Mono # (Auto) 0.8 th/mm3 (0.0-0.9); Mono % (Auto) 14.8 % (0.0-8.0); Neut # (Auto) 3.2 th/mm3 (1.8-7.7); Neut % (Auto) 58.6 % (16.0-70.0); Platelet Count 79 th/mm3 (150-450); Red Blood Count 2.36 mil/mm3 (4.50-5.90); Red Cell Distribution Width 14.7 % (11.6-17.2); White Blood Count 5.5 th/mm3 (4.0-11.0)
[2018-06-16 06:55] LABS: Calcium 8.8 mg/dL (8.5-10.1); Carbon Dioxide 26.5 meq/L (21.0-32.0); Magnesium 2.3 mg/dL (1.5-2.5)
[2018-06-16 07:00] LABS: Potassium 2.8 meq/L (3.5-5.1)
[2018-06-16 07:04] LABS: Platelet Morphology Normal (Normal)
--- NOTE | 2018-06-16 09:09 | US ---
EXAM DATE: 06/15/2018 8:08 PM EDT AGE/SEX: 63 years / Male INDICATIONS: Ascites. CLINICAL DATA: This is the patient's initial encounter. Patient reports that signs and symptoms have been present for 1 month and indicates a pain score of 3/10. MEDICAL/SURGICAL HISTORY: Cirrhosis. Chronic obstructive pulmonary disease. Myocardial infarct ion. CABG. COMPARISON: [facility], CHEST 1V SINGLE AP, 06/15/2018. . FLUID: Total volume of 8,800 cc of clear, yellow fluid was removed. Fluid was sent to lab for ordered studie s. . . TECHNIQUE: Ultrasound guidance for abdominal paracentesis. Paracentesis. Clinical history: The patient arrived to the emergency department. Denied tenths ascites with complet e whiteout of the right lung. Paracentesis was deemed emergent by the primary treating physician. The risks, benefits, and alternatives to ultrasound guided paracentesis were explained to the patient in detail including the risk of bleeding and infection. Written and verbal informed consent was obt ained. With the patient on the ultrasound table, ultrasound imaging was used to select the most appropriate approach for paracentesis. Overlying skin was prepped and draped in the usual sterile fashion and wi th a local anesthetic, a dermatotomy was made with an 11 blade scalpel. A 6 Afghan [id number] ca theter was introduced into the peritoneal cavity and fluid was collected. Post procedure scanning reveals no hematoma or other complication. The patient tolerated the procedu re well and left the ultrasound suite in stable condition. CONCLUSION: 1. Uncomplicated paracentesis. Electronically signed by: Kristopher Reyes MD 06/16/2018 9:08 AM EDT
--- NOTE | 2018-06-16 10:58 | P.CONNP ---
History of Present Illness Service: Nephrology Reason for Consult: ENOCH Primary Care Provider: No Primary Care Physician Chief Complaint: Shortness of breath, abdominal distention History of Present Illness: This is a 63 year old male with history of ETOH abuse, admitted with tense ascites. He is a poor historian. Reports that he came to the hospital because he was fed up with his relatives. He had 8.8 liters of ascitic fluid drained yesterday in therapeutic paracentesis. He feels better today, says he is hungry. Renal function has improved. He is able to void urine. Review of Systems Constitutional: Reports anorexia, Reports weakness, Reports weight loss Cardiovascular: Denies chest pain, Denies shortness of breath Gastrointestinal: Reports abdominal pain Comments: abdominal distension Musculoskeletal: Denies joint pain, Denies joint swelling Neurologic: Denies localized weakness PMFSH - History History Provided By: Patient, Family Member - Medical History Medical History: Medical History (Last Reviewed 06/15/18 @ 15:15 by Monica Rodriguez RN) COPD (chronic obstructive pulmonary disease) Cirrhosis Myocardial infarct - Surgical History Surgical History: Surgical History (Last Reviewed 06/15/18 @ 15:15 by Monica Rodriguez RN) S/P CABG (coronary artery bypass graft) - Tobacco History Smoking Status: Former smoker - Alcohol History How Often Do You Have a Drink Containing Alcohol: 4 or more times a week - Substance Use History Substance History: No History of Abuse - Travel History Recent Travel in the [place] Within the Last 8 Weeks: No Recent Travel Out of the Country Within the Last 8 Weeks: No - Immunization History Tetanus Immunization: <5 Years Medications and Allergies Active Medications: Active Medications Ceftriaxone Sodium 2,000 mg/ (Sodium Chloride) 100 mls @ 200 mls/hr IV.SIG Q24H [facility] Allergies Allergy/AdvReac Type Severity Reaction Status Date / Time No Known Allergies Allergy Verified 06/15/18 15:06 Home Medications Medication Instructions Recorded Confirmed Type No Known Home Medications 06/15/18 06/15/18 History Exam Vital signs: Vital Signs 06/15/18 15:01 06/15/18 15:15 06/15/18 15:18 Temperature 97.4 F L Pulse Rate 96 H 94 H Respiratory Rate 24 26 H Blood Pressure 153/86 H 167/95 H Pulse Oximetry 92 L 91 L 100 06/15/18 18:05 06/15/18 20:26 06/15/18 22:35 Temperature Pulse Rate 89 92 H 95 H Respiratory Rate 26 H 16 Blood Pressure 136/76 122/60 Pulse Oximetry 100 99 06/15/18 23:00 06/16/18 00:00 06/16/18 02:00 Temperature Pulse Rate 98 H 89 84 Respiratory Rate 16 Blood Pressure Pulse Oximetry 96 06/16/18 03:00 06/16/18 04:00 06/16/18 05:00 Temperature Pulse Rate 84 88 92 H Respiratory Rate 20 Blood Pressure Pulse Oximetry 98 06/16/18 07:00 06/16/18 08:24 06/16/18 08:28 Temperature Pulse Rate 87 95 H 88 Respiratory Rate 18 Blood Pressure 122/78 Pulse Oximetry 98 06/16/18 08:34 Temperature Pulse Rate 92 H Respiratory Rate Blood Pressure Pulse Oximetry Intake & Output 06/15/18 06/16/18 06/16/18 18:59 06:59 18:59 Intake Total 100 / 100 1128 / 1128 Output Total 150 / 150 Balance 100 / 100 978 / 978 Weight 56.699 kg 59.5 kg Intake: IV 100 / 100 408 / 408 Flexbumin 25% Inj 100 ML @ 60 200 / 200 mls/hr IV.SIG Q100M [facility] Rx#: [id number] Magnesium Sulfate Inj 4 GM In 108 / 108 D5W Inj 100 ML @ 25 mls/hr IV. SIG ONCE ONE Rx#:[id number] Rocephin Inj 1,000 MG In NS Inj 100 / 100 100 / 100 100 ML @ 200 mls/hr IV.SIG ONCE ONE Rx#:[id number] Oral 720 / 720 Output: Urine 150 / 150 Other: Date of Last Bowel Movement 06/14/18 - Constitutional no acute distress, thin, cachectic, chronically ill appearing, disheveled - Routine HEENT Exam Head: Present: normocephalic, atraumatic Eye: Present: EOMI, PERRL - Routine Neck Exam Present: supple, full ROM. Absent: lymphadenopathy, thyromegaly - Routine Respiratory Exam Present: CTA bilaterally - Routine Cardiovascular Exam Present: RRR, S1, S2 - Routine Abdominal Exam Present: soft, normoactive bowel sounds Comments: abdomen is distended. - Routine Extremities Exam Absent: edema Results - Lab Results 06/16/18 05:53 06/16/18 05:53 Most recent lab results Calcium 8.8 mg/dL (8.5-10.1) 06/16/18 05:53 Magnesium 2.3 mg/dL (1.5-2.5) D 06/16/18 05:53 Assessment and Plan - Assessment (1) Acute kidney injury Code(s): N17.9 - Acute kidney failure, unspecified Status: Acute Plan: Renal function appears to have improved after therapeutic paracentesis. It is possible that there was increased renal vein pressure due to tense ascites. If he is non oliguric, we cannot make a diagnosis of hepatorenal syndrome. Hepatorenal syndrome is a diagnosis of exclusion. I will obtain urine electrolytes. Avoid nephrotoxic agents. Agree with use of albumin. (2) Cirrhosis of liver Code(s): K74.60 - Unspecified cirrhosis of liver Status: Acute Plan: patient has history of ETOH abuse. Likely has alcoholic cirrhosis. Management per hospitalist. (3) Ascites Code(s): R18.8 - Other ascites Status: Acute Plan: due to portal hypertension. It is transudative. (4) Alcohol abuse Code(s): F10.10 - Alcohol abuse, uncomplicated Status: Acute Plan: cessation was advised. (5) Hypokalemia Code(s): E87.6 - Hypokalemia Status: Acute Plan: Replacement has been ordered. Replace Magnesium if needed. Etiology is unclear, could have been due to GI losses: vomiting. He did have mild hypomagnesemia: likely due to ETOH use. Hypomagnesemia can secondarily cause hypokalemia. - Attending Attestation Thanks for the consult. He can be discharged from renal standpoint provided his renal function is stable, and hypokalemia is corrected.
--- NOTE | 2018-06-16 14:58 | ECG ---
Date Performed: 06/15/2018 Time Performed: 15:52:11 PTAGE: 63 years EKG: Sinus rhythm WITH SHORT [place] INTERVAL BORDERLINE RIGHT AXIS DEVIATION LOW QRS VOLTAGE IN EXTREMITY LEADS SEPTAL JUNAID CARDIAL INFARCTION ABNORMAL ECG NO PREVIOUS TRACING DOCTOR: Sean Burgos Interpretating Date/Time 06/16/2018 14:56:25
--- NOTE | 2018-06-16 20:40 | P.PNIM ---
Subjective Interval history: Patient complains of some shortness of breath when he moves around in bed. He says that his abdomen is distended again. His abdominal pain has improved. Physical Exam Vital signs: Vital Signs 06/15/18 20:26 06/15/18 22:35 06/15/18 23:00 Temperature Pulse Rate 92 H 95 H 98 H Respiratory Rate 16 Blood Pressure 122/60 Pulse Oximetry 99 06/16/18 00:00 06/16/18 02:00 06/16/18 03:00 Temperature Pulse Rate 89 84 84 Respiratory Rate 16 Blood Pressure Pulse Oximetry 96 06/16/18 04:00 06/16/18 05:00 06/16/18 07:00 Temperature Pulse Rate 88 92 H 87 Respiratory Rate 20 Blood Pressure Pulse Oximetry 98 06/16/18 08:24 06/16/18 08:28 06/16/18 08:34 Temperature Pulse Rate 95 H 88 92 H Respiratory Rate 18 Blood Pressure 122/78 Pulse Oximetry 98 06/16/18 09:00 06/16/18 10:00 06/16/18 11:00 Temperature Pulse Rate 90 92 H 88 Respiratory Rate Blood Pressure Pulse Oximetry 06/16/18 12:00 06/16/18 13:00 06/16/18 14:00 Temperature 97.8 F Pulse Rate 96 H 90 92 H Respiratory Rate 18 Blood Pressure 121/82 Pulse Oximetry 96 06/16/18 15:00 06/16/18 16:00 06/16/18 17:00 Temperature 97.9 F Pulse Rate 103 H 86 92 H Respiratory Rate 18 Blood Pressure 198/80 H Pulse Oximetry 96 06/16/18 18:00 Temperature Pulse Rate 96 H Respiratory Rate Blood Pressure Pulse Oximetry Intake & Output 06/16/18 06/16/18 06/17/18 06:59 18:59 06:59 Intake Total 1128 / 1128 820 / 820 Output Total 150 / 150 200 / 200 Balance 978 / 978 620 / 620 Weight 59.5 kg Intake: IV 408 / 408 100 / 100 Flexbumin 25% Inj 100 ML @ 60 200 / 200 mls/hr IV.SIG Q100M [facility] Rx#: [id number] Magnesium Sulfate Inj 4 GM In 108 / 108 D5W Inj 100 ML @ 25 mls/hr IV. SIG ONCE ONE Rx#:[id number] Rocephin Inj 1,000 MG In NS Inj 100 / 100 100 ML @ 200 mls/hr IV.SIG ONCE ONE Rx#:[id number] Rocephin Inj 2,000 MG In NS Inj 100 / 100 100 ML @ 200 mls/hr IV.SIG Q24H [facility] Rx#:[id number] Oral 720 / 720 720 / 720 Output: Urine 150 / 150 200 / 200 Other: # Voids 2 Date of Last Bowel Movement 06/14/18 Narrative: General patient complains of some shortness of breath when he moves around in bed. HEENT extraocular movements are intact, clear oropharyngeal mucosa, no JVD Cardiovascular S1-S2 audible, RRR, no murmurs rubs or gallops Respiratory decreased breath sounds on the right Abdomen no tenderness to palpation. Abdomen is distended. Extremities 1+ pitting edema bilateral lower extremities up to the shins Neuro no neurological deficits. Results - Labs CBC & Chem 7: 06/16/18 05:53 06/16/18 05:53 Laboratory Results - last 24 hr 06/15/18 06/15/18 06/15/18 19:08 20:20 23:25 WBC RBC Hgb Hct MCV MCH MCHC RDW Plt Count MPV Prelim Diff (Auto) Neut % (Auto) Lymph % (Auto) [place] % (Auto) Eos % (Auto) Baso % (Auto) Neut # (Auto) Lymph # (Auto) [place] # (Auto) Eos # (Auto) Baso # (Auto) WBC Differential Diff Scan Differential Comment Platelet Estimate Platelet Morphology Sodium Potassium Chloride Carbon Dioxide Anion Gap BUN Creatinine Estimated GFR Random Glucose Lactic Acid 2.2 H Calcium Magnesium Urine Color Tory Urine Clarity Clear Urine pH 5.0 Ur Specific [place] 1.018 Urine Protein Negative Urine Glucose (UA) Negative Urine Ketones Negative Urine Occult Blood Small H Urine Nitrate Negative Urine Bilirubin Negative Urine Urobilinogen 4 or greater Ur Leukocyte Esterase Negative Urine RBC 4 H Urine WBC 4 Ur Squamous Epith Cells 1 Urine Bacteria Rare H Hyaline Casts 1 Urine Mucus Few H Micro UA Comment Culture not ind Ur Microscopic Review Not Reportable Urine Culture Comments Culture not ind Pleural Neutrophils 16 Pleural Lymphocytes 72 Pleural Basophils 1 Pleural Histocytes 11 06/16/18 06/16/18 06/16/18 05:53 05:53 05:53 WBC 5.5 RBC 2.36 L Hgb 9.1 L Hct 26.6 L MCV 112.8 H MCH 38.5 H MCHC 34.2 RDW 14.7 Plt Count 79 L MPV 9.4 Prelim Diff (Auto) Slide review pending Neut % (Auto) 58.6 Lymph % (Auto) 24.0 [place] % (Auto) 14.8 H Eos % (Auto) 1.8 Baso % (Auto) 0.8 Neut # (Auto) 3.2 Lymph # (Auto) 1.3 [place] # (Auto) 0.8 Eos # (Auto) 0.1 Baso # (Auto) 0.0 WBC Differential . Diff Scan Auto diff confirmed Differential Comment . Platelet Estimate Low L Platelet Morphology Normal Sodium 145 Potassium 2.8 L* Chloride 110 H Carbon Dioxide 26.5 Anion Gap 9 BUN 12 Creatinine 1.25 Estimated GFR 71 L Random Glucose 81 Lactic Acid 2.2 H Calcium 8.8 Magnesium 2.3 D Urine Color Urine Clarity Urine pH Ur Specific [place] Urine Protein Urine Glucose (UA) Urine Ketones Urine Occult Blood Urine Nitrate Urine Bilirubin Urine Urobilinogen Ur Leukocyte Esterase Urine RBC Urine WBC Ur Squamous Epith Cells Urine Bacteria Hyaline Casts Urine Mucus Micro UA Comment Ur Microscopic Review Urine Culture Comments Pleural Neutrophils Pleural Lymphocytes Pleural Basophils Pleural Histocytes Microbiology 06/15/18 19:08 Fluid - Peritoneal fluid Gram Stain - Final 06/15/18 19:08 Fluid - Peritoneal fluid Body Fluid Culture - Preliminary No growth in 24 hours 06/15/18 16:05 Blood - Peripheral Aerobic Blood Culture - Preliminary No growth in 1 day 06/15/18 16:05 Blood - Peripheral Anaerobic Blood Culture - Preliminary No growth in 1 day 06/15/18 16:05 Blood - Peripheral Aerobic Blood Culture - Preliminary No growth in 1 day 06/15/18 16:05 Blood - Peripheral Anaerobic Blood Culture - Preliminary No growth in 1 day - Imaging Impressions Paracentesis Ultrasound 06/15/18 00:00 CONCLUSION: 1. Uncomplicated paracentesis. Assessment and Plan - Plan This patient is a 63-year-old male with a diagnosis of alcoholic liver cirrhosis who presents to our emergency department with complaints of abdominal pain and worsening abdominal distention over the past 2 weeks. He has also been having worsening shortness of breath and has been unable to lie flat and sleep comfortably. Given his symptoms he came into our emergency department for evaluation and care. He denies having any fevers or chills. He denies black stools, he has noticed a minimal amount of on and off blood in his stool, he also states he noticed a pinkish tinge in his urine. He denies chest pain, no diarrhea. The patient denies any history of SBP. 1. Systemic inflammatory response syndrome likely secondary to hypoxia and severe abdominal ascites. 2. Alcoholic liver cirrhosis 3. Acute hypoxic respiratory failure secondary to large right-sided pleural effusion 4. Acute kidney injury likely prerenal Blood cultures are negative up until now. Ascites fluid culture is pending, unlikely SBP as the ascites fluid studies were negative for infection. We will discontinue antibiotics. The patient's abdominal tenderness did improve after the paracentesis. 8.8 L of ascites fluid was removed. On my evaluation today the patient still has a distended abdomen. No tenderness to palpation today. I discussed the case with the nurse who said the patient's abdomen was much smaller this morning prior to her leaving the hospital. The abdominal ascites fluid may have reaccumulated. I will obtain a chest x-ray to evaluate the right-sided pleural effusion. I will also discussed the case with interventional radiology tomorrow a.m. for another paracentesis. Currently the patient is on 2 L of supplemental oxygen with an O2 saturation of 90%. Patient still requiring supplemental oxygen. Nephrology evaluated the patient for acute kidney injury. Serum creatinine is improving somewhat, will follow up in a.m. renal panel. Patient is afebrile, antibiotics will be discontinued. Patient was complaining of hematuria yesterday. No DVT prophylaxis for today with pharmacotherapy. We will place the patient on SCDs.
--- NOTE | 2018-06-16 21:13 | XR ---
EXAM DATE: 06/16/2018 9:07 PM EDT AGE/SEX: 63 years / Male INDICATIONS: Shortness of breath. CLINICAL DATA: This is the patient's subsequent encounter. Patient reports that signs and symptoms h ave been present for 2 days and indicates a pain score of 0/10. MEDICAL/SURGICAL HISTORY: Cirrhosis. Chronic obstructive pulmonary disease. Myocardial infarc tion. CABG. COMPARISON: [facility], CHEST 1V SINGLE AP, 06/15/2018. . FINDINGS: A single AP semierect view of the chest was obtained and again demonstrates the patient status post m edian sternotomy. The right hemithorax remains completely opacified with no volume loss. The heart si ze appears at the upper limits of normal. There is hazy opacity in the left lung with no focal consol idation or effusion. The bony thorax is otherwise unremarkable. There are overlying electrocardiogram leads. CONCLUSION: 1. The right hemithorax remains completely opacified. 2. Mild hazy opacity in the left lung with no focal consolidation. 3. Status post median sternotomy. Electronically signed by: Shelton Solorzano MD 06/16/2018 9:12 PM EDT
[2018-06-16 22:44] LABS: Creatinine,Urine Random 211 mg/dL (27-300)
[2018-06-17 06:18] LABS: Calcium 8.5 mg/dL (8.5-10.1); Carbon Dioxide 25.6 meq/L (21.0-32.0); Magnesium 1.9 mg/dL (1.5-2.5); Potassium 3.9 meq/L (3.5-5.1)
--- NOTE | 2018-06-17 09:02 | P.PNIM ---
Subjective Interval history: Patient complains of some shortness of breath when moving around. His abdomen is distended, denies any abdominal pain. Physical Exam Vital signs: Vital Signs 06/16/18 09:00 06/16/18 10:00 06/16/18 11:00 Temperature Pulse Rate 90 92 H 88 Respiratory Rate Blood Pressure Pulse Oximetry 06/16/18 12:00 06/16/18 13:00 06/16/18 14:00 Temperature 97.8 F Pulse Rate 96 H 90 92 H Respiratory Rate 18 Blood Pressure 121/82 Pulse Oximetry 96 06/16/18 15:00 06/16/18 16:00 06/16/18 17:00 Temperature 97.9 F Pulse Rate 103 H 86 92 H Respiratory Rate 18 Blood Pressure 198/80 H Pulse Oximetry 96 06/16/18 18:00 06/16/18 19:00 06/16/18 20:00 Temperature Pulse Rate 96 H 96 H 98 H Respiratory Rate 20 Blood Pressure 113/82 Pulse Oximetry 06/16/18 21:00 06/16/18 22:00 06/16/18 23:00 Temperature Pulse Rate 94 H 98 H 98 H Respiratory Rate Blood Pressure Pulse Oximetry 06/17/18 00:00 06/17/18 01:00 06/17/18 02:00 Temperature Pulse Rate 95 H 102 H 102 H Respiratory Rate 16 Blood Pressure Pulse Oximetry 96 06/17/18 03:00 06/17/18 04:00 06/17/18 05:00 Temperature Pulse Rate 98 H 94 H 96 H Respiratory Rate 16 Blood Pressure Pulse Oximetry 96 06/17/18 06:00 Temperature Pulse Rate 96 H Respiratory Rate Blood Pressure Pulse Oximetry Intake & Output 06/16/18 06/17/18 06/17/18 18:59 06:59 18:59 Intake Total 820 / 820 480 / 480 Output Total 200 / 200 200 / 200 Balance 620 / 620 280 / 280 Weight 60.9 kg Intake: IV 100 / 100 Rocephin Inj 2,000 MG In NS Inj 100 / 100 100 ML @ 200 mls/hr IV.SIG Q24H [facility] Rx#:[id number] Oral 720 / 720 480 / 480 Output: Urine 200 / 200 200 / 200 Other: # Voids 2 # Urine Diapers 1 Date of Last Bowel Movement 06/14/18 06/17/18 Narrative: General patient complains of some shortness of breath when he moves around in bed. HEENT extraocular movements are intact, clear oropharyngeal mucosa, no JVD Cardiovascular S1-S2 audible, RRR, no murmurs rubs or gallops Respiratory decreased breath sounds on the right Abdomen no tenderness to palpation. Abdomen is distended. Extremities 1+ pitting edema bilateral lower extremities up to the shins Neuro no neurological deficits. Results - Labs CBC & Chem 7: 06/16/18 05:53 06/17/18 05:32 Laboratory Results - last 24 hr 06/16/18 06/17/18 22:00 05:32 Sodium 144 Potassium 3.9 D Chloride 110 H Carbon Dioxide 25.6 Anion Gap 8 BUN 12 Creatinine 1.32 H Estimated GFR 67 L Random Glucose 86 Calcium 8.5 Magnesium 1.9 Ur Random Creatinine 211 Ur Random Sodium 15 Microbiology 06/15/18 19:08 Fluid - Peritoneal fluid Gram Stain - Final 06/15/18 19:08 Fluid - Peritoneal fluid Body Fluid Culture - Preliminary No growth in 24 hours 06/15/18 16:05 Blood - Peripheral Aerobic Blood Culture - Preliminary No growth in 1 day 06/15/18 16:05 Blood - Peripheral Anaerobic Blood Culture - Preliminary No growth in 1 day 06/15/18 16:05 Blood - Peripheral Aerobic Blood Culture - Preliminary No growth in 1 day 06/15/18 16:05 Blood - Peripheral Anaerobic Blood Culture - Preliminary No growth in 1 day - Imaging Impressions Paracentesis Ultrasound 06/15/18 00:00 CONCLUSION: 1. Uncomplicated paracentesis. Chest X-Ray 06/16/18 00:00 CONCLUSION: 1. The right hemithorax remains completely opacified. 2. Mild hazy opacity in the left lung with no focal consolidation. 3. Status post median sternotomy. Assessment and Plan - Plan This patient is a 63-year-old male with a diagnosis of alcoholic liver cirrhosis who presents to our emergency department with complaints of abdominal pain and worsening abdominal distention over the past 2 weeks. He has also been having worsening shortness of breath and has been unable to lie flat and sleep comfortably. Given his symptoms he came into our emergency department for evaluation and care. He denies having any fevers or chills. He denies black stools, he has noticed a minimal amount of on and off blood in his stool, he also states he noticed a pinkish tinge in his urine. He denies chest pain, no diarrhea. The patient denies any history of SBP. 1. Systemic inflammatory response syndrome likely secondary to hypoxia and severe abdominal ascites. 2. Alcoholic liver cirrhosis 3. Acute hypoxic respiratory failure secondary to large right-sided pleural effusion 4. Acute kidney injury likely prerenal Blood cultures are negative. Patient remains afebrile. The patient has a significant amount of ascites fluid that has reaccumulated, repeat chest x-ray shows large right-sided pleural effusion. Interventional radiology consulted to evaluate the patient for another paracentesis and possibly a right-sided thoracentesis. Patient is still hypoxic requiring supplemental oxygen. Serum creatinine is 1.34 today slightly elevated from yesterday, possibly due to reaccumulation of ascites fluid. I will follow-up with interventional radiology. Patient will be given albumin again today for another large volume paracentesis. The patient had 8.8 L of ascites fluid removed approximately 2 days ago. Pharmacotherapy for DVT prophylaxis will be started today after the procedure.
[2018-06-17] MEDS ORDERED: Albumin Human 25% Inj 100 ML IV.SIG SCH (10:00)
--- NOTE | 2018-06-17 11:03 | P.PNNP ---
Subjective Interval history: patient was seen and examined. Chronically ill appearing. Needs repeat paracentesis and thoracentesis. Notes were reviewed. Physical Exam Vital signs: Vital Signs 06/16/18 11:00 06/16/18 12:00 06/16/18 13:00 Temperature 97.8 F Pulse Rate 88 96 H 90 Respiratory Rate 18 Blood Pressure 121/82 Pulse Oximetry 96 06/16/18 14:00 06/16/18 15:00 06/16/18 16:00 Temperature 97.9 F Pulse Rate 92 H 103 H 86 Respiratory Rate 18 Blood Pressure 198/80 H Pulse Oximetry 96 06/16/18 17:00 06/16/18 18:00 06/16/18 19:00 Temperature Pulse Rate 92 H 96 H 96 H Respiratory Rate Blood Pressure Pulse Oximetry 06/16/18 20:00 06/16/18 21:00 06/16/18 22:00 Temperature Pulse Rate 98 H 94 H 98 H Respiratory Rate 20 Blood Pressure 113/82 Pulse Oximetry 06/16/18 23:00 06/17/18 00:00 06/17/18 01:00 Temperature Pulse Rate 98 H 95 H 102 H Respiratory Rate 16 Blood Pressure Pulse Oximetry 96 06/17/18 02:00 06/17/18 03:00 06/17/18 04:00 Temperature Pulse Rate 102 H 98 H 94 H Respiratory Rate 16 Blood Pressure Pulse Oximetry 96 06/17/18 05:00 06/17/18 06:00 Temperature Pulse Rate 96 H 96 H Respiratory Rate Blood Pressure Pulse Oximetry Intake & Output 06/16/18 06/17/18 06/17/18 18:59 06:59 18:59 Intake Total 820 / 820 480 / 480 Output Total 200 / 200 200 / 200 Balance 620 / 620 280 / 280 Weight 60.9 kg Intake: IV 100 / 100 Rocephin Inj 2,000 MG In NS Inj 100 / 100 100 ML @ 200 mls/hr IV.SIG Q24H AARTI Rx#:[id number] Oral 720 / 720 480 / 480 Output: Urine 200 / 200 200 / 200 Other: # Voids 2 # Urine Diapers 1 Date of Last Bowel Movement 06/14/18 06/17/18 Narrative: General : dishevelled, generalized muscle wasting. HEENT extraocular movements are intact, clear oropharyngeal mucosa, no JVD Cardiovascular S1-S2 audible, RRR, no murmurs rubs or gallops Respiratory decreased breath sounds on the right Abdomen no tenderness to palpation. Abdomen is distended. Extremities dependent edema. Neuro no neurological deficits. Assessment and Plan - Assessment (1) Acute kidney injury Code(s): N17.9 - Acute kidney failure, unspecified Status: Acute Plan: Slight increase in creatinine. Non oliguric: he says he is voiding. It is possible that there was increased renal vein pressure due to tense ascites. He needs repeat paracentesis. Agree with albumin. Very poor prognosis. Hepatorenal syndrome is a diagnosis of exclusion. He may still have type 2 hepatorenal syndrome. Urine Na is relatively low. Avoid nephrotoxic agents. (2) Cirrhosis of liver Code(s): K74.60 - Unspecified cirrhosis of liver Status: Acute Plan: patient has history of ETOH abuse. Likely has alcoholic cirrhosis. Management per hospitalist. (3) Ascites Code(s): R18.8 - Other ascites Status: Acute Plan: due to portal hypertension. It is transudative. (4) Alcohol abuse Code(s): F10.10 - Alcohol abuse, uncomplicated Status: Acute Plan: cessation was advised. (5) Hypokalemia Code(s): E87.6 - Hypokalemia Status: Acute Plan: Replacement has been ordered. Replace Magnesium if needed. Etiology is unclear, could have been due to GI losses: vomiting. He did have mild hypomagnesemia: likely due to ETOH use. Hypomagnesemia can secondarily cause hypokalemia. (6) Pleural effusion Code(s): J90 - Pleural effusion, not elsewhere classified Status: Acute Plan: thoracentesis is planned.
--- NOTE | 2018-06-17 15:52 | XR ---
EXAM DATE: 06/17/2018 3:49 PM EDT AGE/SEX: 63 years / Male INDICATIONS: Post thorocentesis. CLINICAL DATA: This is the patient's initial encounter. Patient reports that signs and symptoms have been present for 1 day and indicates a pain score of 7/10. MEDICAL/SURGICAL HISTORY: . : Cirrhosis. Chronic obstructive pulmonary disease. Myocardial infa rction. CABG . COMPARISON: [facility] [place] 1[place]ING[place], [place]/16/2018. . FINDINGS: Single view the chest symptoms or there is diffuse infiltrate in the right upper lobe. Patient's had a thoracentesis. Likely reexpansion pulmonary edema. Left lungs clear. No left-sided pneumothorax is seen. Heart and mediastinum unremarkable. CONCLUSION: Diffuse infiltrate in the right upper lobe status post thoracentesis. Likely reexpansion pulmonary ed francisco j. Small residual pleural effusion remains. Electronically signed by: Sean Holliday MD 06/17/2018 3:50 PM EDT
--- NOTE | 2018-06-17 16:52 | US ---
EXAM DATE: 06/17/2018 4:16 PM EDT AGE/SEX: 63 years / Male INDICATIONS: Right pleural effusion. CLINICAL DATA: This is the patient's initial encounter. Patient reports that signs and symptoms have been present for 3 days and indicates a pain score of 8/10. MEDICAL/SURGICAL HISTORY: . Cirrhosis. Chronic obstructive pulmonary disease. . Myocardial inf arction. CABG. COMPARISON: No prior exams available for comparison. FLUID: Total volume of 2,300 cc of clear, yellow fluid was removed. Fluid was discarded. Thoracentesis was therapeutic only. TECHNIQUE: Ultrasound guidance for thoracentesis. Thoracentesis. The risks, benefits, and alternatives to ultrasound guided thoracentesis were explained to the patien t in lay simple terms, including the risk of bleeding and infection. Written and verbal informed con sent was obtained. Appropriate area for right thoracentesis was marked under ultrasound guidance with the patient in the upright position. Overlying skin was prepped and draped in the usual sterile fashion and with local anesthetic, a dermatotomy was made with an 11 blade scalpel. A 6 Malagasy thoracentesis catheter was placed in the pleural space and 2 L of fluid was removed. Catheter was then removed and a sterile dr essing applied. There were no immediate complications. The patient tolerated the procedure well. Ch est radiograph is to be obtained. CONCLUSION: 1. Uncomplicated thoracentesis. Electronically signed by: Kristopher Reyes MD 06/17/2018 4:50 PM EDT
--- NOTE | 2018-06-17 16:56 | US ---
EXAM DATE: 06/17/2018 4:20 PM EDT AGE/SEX: 63 years / Male INDICATIONS: Ascites. CLINICAL DATA: This is the patient's subsequent encounter. Patient reports that signs and symptoms h ave been present for 2 days and indicates a pain score of 8/10. MEDICAL/SURGICAL HISTORY: . Cirrhosis. Chronic obstructive pulmonary disease. . Myocardial inf arction. CABG. [place] [facility] [place]/15/2018. . FLUID: Total volume of 4,700 cc of clear, yellow fluid was removed. Fluid was discarded. Paracentesis was th erapeutic only. . . TECHNIQUE: Ultrasound guidance for abdominal paracentesis. Paracentesis. The risks, benefits, and alternatives to ultrasound guided paracentesis were explained to the patient in detail including the risk of bleeding and infection. Written and verbal informed consent was obt ained. With the patient on the ultrasound table, ultrasound imaging was used to select the most appropriate approach for paracentesis. Overlying skin was prepped and draped in the usual sterile fashion and wi th a local anesthetic, a dermatotomy was made with an 11 blade scalpel. A 6 Yoruba [id number] ca theter was introduced into the peritoneal cavity and fluid was collected. Following the removal of the fluid from the paracentesis the patient was monitored and noted to be mo derately hypotensive and was experiencing episodes of desaturation. The patient was given 1 L of normal saline following the liter of normal saline the blood pressure wa s 124/70. O2 was 93% on nasal cannula. The patient was transferred back to the [facility]. CONCLUSION: 1. 4.7 L of fluid was removed. 2. Following the paracentesis and thoracentesis the patient was somewhat hypotensive. The patient re sponded to a liter of normal saline was transferred back to the CICU in good condition. Electronically signed by: Kristopher Reyes MD 06/17/2018 4:55 PM EDT
[2018-06-17 18:06] LABS: ABG PCO2 33 mmHg (38-42); ABG PO2 84 mmHG (61-120)
--- NOTE | 2018-06-17 20:02 | P.CONCC ---
History of Present Illness Service: Critical Care Medicine Consult date: 06/17/18 Requesting Physician: Laurel Son Reason for Consult: hypoxia Primary Care Provider: No Primary Care Physician Chief Complaint: Shortness of breath, abdominal distention History of Present Illness: This is a 63-year-old male with end-stage liver disease who underwent large volume thoracentesis and paracentesis today. Immediately post procedure he was hypotensive and required IV fluid resuscitation as well as concentrated albumin. Now a few hours later he has worsening respiratory distress. He was emergently transferred to the ICU. On my evaluation he is tachypneic and in distress. Chest x-ray demonstrates new acute interstitial infiltrates only on the right side consistent with reexpansion pulmonary edema. Patient denies chest pain, fever, chills, other symptoms. Does endorse shortness of breath. Patient was placed on BiPAP. Remainder the review of systems is negative. Review of Systems All other systems reviewed negative except as stated in HPI PMFSH - History History Provided By: Patient, Family Member - Medical History Medical History: Medical History (Last Reviewed 06/17/18 @ 19:57 by Kane Downey MD) COPD (chronic obstructive pulmonary disease) Cirrhosis Myocardial infarct - Surgical History Surgical History: Surgical History (Last Reviewed 06/17/18 @ 19:57 by Kane Downey MD) S/P CABG (coronary artery bypass graft) - Social History I have reviewed the patient's Social History: Yes - Tobacco History Smoking Status: Former smoker - Alcohol History How Often Do You Have a Drink Containing Alcohol: 4 or more times a week - Substance Use History Substance History: No History of Abuse - Travel History Recent Travel in the [facility] Within the Last 8 Weeks: No Recent Travel Out of the Country Within the Last 8 Weeks: No - Immunization History Tetanus Immunization: <5 Years Medications and Allergies Active Medications: Active Medications Aspirin (Aspirin Chew) 81 mg PO DAILY AARTI Last Admin: 06/17/18 09:01 Dose: 81 mg Allergies Allergy/AdvReac Type Severity Reaction Status Date / Time No Known Allergies Allergy Verified 06/15/18 15:06 Home Medications Medication Instructions Recorded Confirmed Type No Known Home Medications 06/15/18 06/15/18 History Physical Exam Vital signs: Vital Signs 06/16/18 20:00 06/16/18 21:00 06/16/18 22:00 Temperature Pulse Rate 98 H 94 H 98 H Respiratory Rate 20 Blood Pressure 113/82 Pulse Oximetry 06/16/18 23:00 06/17/18 00:00 06/17/18 01:00 Temperature Pulse Rate 98 H 95 H 102 H Respiratory Rate 16 Blood Pressure Pulse Oximetry 96 06/17/18 02:00 06/17/18 03:00 06/17/18 04:00 Temperature Pulse Rate 102 H 98 H 94 H Respiratory Rate 16 Blood Pressure Pulse Oximetry 96 06/17/18 05:00 06/17/18 06:00 06/17/18 13:53 Temperature 36.7 C Pulse Rate 96 H 96 H 98 H Respiratory Rate 22 Blood Pressure 109/70 Pulse Oximetry 94 L 06/17/18 16:00 06/17/18 18:43 Temperature Pulse Rate Respiratory Rate Blood Pressure Pulse Oximetry 98 99 Intake & Output 06/17/18 06/17/18 06/18/18 06:59 18:59 06:59 Intake Total 480 / 480 Output Total 200 / 200 Balance 280 / 280 Weight 60.9 kg Intake: Oral 480 / 480 Output: Urine 200 / 200 Other: # Urine Diapers 1 Date of Last Bowel Movement 06/17/18 Narrative: GENERAL: Cachectic and frail middle-age male who appears much older than stated age, lying in bed, in respiratory distress HEENT: Normocephalic. Atraumatic. Pupils equal, round, reactive, conjugate. Mucous membranes are moist NECK: Trachea is midline. There is no JVD. CHEST: Tachypneic. Using accessory muscles. Coarse rales on the right side. Nonrebreather in place initially. CARDIOVASCULAR: Normal rate, regular rhythm. Sinus. ABDOMEN: Soft, nontender, nondistended. No guarding. MUSCULOSKELETAL: Pulses 2+. No peripheral edema. NEUROLOGICAL: RASS -1. Follows commands. no focal deficits. Assessment and Plan - Assessment and Plan Plan: Assessment: 63-year-old male with end-stage liver disease and right-sided pleural effusion associated with his large volume ascites and end-stage liver disease. Now post procedure day 0 status post large volume thoracentesis and paracentesis with acute reexpansion pulmonary edema leading to acute hypoxic respiratory failure. Patient should improve significantly on noninvasive positive pressure ventilation. We will keep him on BiPAP overnight and recheck chest x-ray and ABG in the morning. In response to his end-stage liver disease , his MELD is 22 and he is quite chronically ill. 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 Will consult palliative care to assist with long-term goals of care, as I do not think his overall prognosis is good long-term. Remains critically ill with new acute respiratory failure. Re-expansion pulmonary edema Acute hypoxic respiratory failure - BiPAP - recheck abg in AM - recheck CXR in AM - wean fio2 for goal spo2 > 90% - remains full code, and may require intubation if he deteriorates ESLD - MELD 22 - Child Canales C - palliative care - long-term prognosis is poor NPO while in resp distress Admit to ICU. critical care time: 32 minutes, exclusive of separately billable procedures.
[2018-06-17] MEDS ORDERED: Magnesium Oxide 400 MG Tablet PO PRN (20:03)
[2018-06-17] MEDS ORDERED: Sodium Phosphate Inj 30 MMOL in Sodium Chlor 0.9% Inj 250 ML IV.SIG PRN (20:03)
[2018-06-17] MEDS ORDERED: Potassium Chloride 25 MEQ Effervescent Tablet PO PRN (20:03)
[2018-06-17] MEDS ORDERED: Potassium Chlor 20 mEq Premix 20 MEQ/100 ML PIGGYBACK IV.SIG PRN ×2 (20:03)
[2018-06-17] MEDS ORDERED: Potassium Phosphate Inj 30 MMOL in Sodium Chlor 0.9% Inj 250 ML IV.SIG PRN (20:03)
[2018-06-17] MEDS ORDERED: Potassium Phosphate 500 MG Soluble Tablet PO PRN ×2 (20:03)
[2018-06-17] MEDS ORDERED: Magnesium Sulfate Inj 2 GM in Sodium Chlor 0.9% Inj 96 ML IV.SIG PRN (20:03)
[2018-06-17] MEDS ORDERED: Magnesium Sulfate Inj 4 GM in Sodium Chlor 0.9% Inj 92 ML IV.SIG PRN (20:03)
[2018-06-17] MEDS ORDERED: Potassium Chlor 40 mEq Premix 40 MEQ/100 ML PIGGYBACK IV.SIG PRN ×2 (20:03)
--- NOTE | 2018-06-18 04:00 | XR ---
EXAM DATE: 06/18/2018 3:42 AM EDT AGE/SEX: 63 years / Male INDICATIONS: Shortness of breath. CLINICAL DATA: This is the patient's subsequent encounter. Patient reports that signs and symptoms h ave been present for 4 - 6 days and indicates a pain score of 10/10. MEDICAL/SURGICAL HISTORY: . Cirrhosis. Chronic obstructive pulmonary disease. Myocardial infarc tion. CABG. COMPARISON: [facility] – [place], CHEST 1V SINGLE AP, 06/16/2018. . FINDINGS: The cardiac silhouette is normal in transverse diameter. Median sternotomy wires are present. A poste rior calcaneal spur is present. There is diffuse right-sided pneumonia slightly improved when compare d with the prior exam. Left-sided disease is unchanged. Large right effusion is present. CONCLUSION: Decreasing right-sided effusion when compared with the prior study with diffuse edema versus pneumoni a right greater than left. Electronically signed by: Rajeev Carpio MD 06/18/2018 3:58 AM EDT
[2018-06-18 05:43] LABS: ABG Base Excess -1.6 mmol/L (-2-2); ABG PCO2 29 mmHg (38-42); ABG PO2 83 mmHG (61-120)
[2018-06-18 06:43] LABS: Alanine Aminotransferase 12 U/L (12-78); Albumin 1.9 g/dL (3.4-5.0); Alkaline Phosphatase 71 U/L (45-117); Anion Gap 12 meq/L (5-15); Aspartate Aminotransferase 45 U/L (15-37); Blood Urea Nitrogen 17 mg/dL (7-18); Calcium 8.5 mg/dL (8.5-10.1); Chloride 111 meq/L (98-107); Glomerular Filtration Rate 59 mL/min (>89); Glucose,Random 75 mg/dL (74-106); Magnesium 1.8 mg/dL (1.5-2.5); Phosphorus 2.1 mg/dL (2.5-4.9); Sodium 146 meq/L (136-145)
[2018-06-18 08:53] LABS: Hematocrit 31.3 % (39.0-51.0); Hemoglobin 10.6 gm/dL (13.0-17.0); Mean Corpuscular HGB Conc 33.7 % (32.0-36.0); Mean Corpuscular Volume 112.6 fL (80.0-100.0); Platelet Count 78 th/mm3 (150-450); Red Blood Count 2.78 mil/mm3 (4.50-5.90); Red Cell Distribution Width 14.9 % (11.6-17.2); White Blood Count 13.5 th/mm3 (4.0-11.0)
[2018-06-18 09:14] LABS: INR 2.3 Ratio; Prothrombin Time 23.2 sec (9.8-11.6)
--- NOTE | 2018-06-18 12:00 | P.CONPAL ---
Consult Service: Palliative Care Requesting Physician: Kane Downey Reason for Consult: a. To assist with evaluation and management of symptoms including: pain, fluid excess, dyspnea b. To assist medical decision maker(s) with: better understanding of current medical conditions; weighing benefits/burdens of medical treatment options; making medical treatment decisions. Primary Care Provider: No Primary Care Physician History of Present Illness History of Present Illness: This is a 63 y/o male with hx cirrhosis, COPD, MS, s/p CABG who presented to ER 06/15 with complaints of SOB, abd pain, blood in urine and stool. Reportedly he gets a paracentesis every 2 months, last one was 4-5 months ago. On arrival labs notable for Hgb 10, MCV 113, PLT 96, K 2.9, creatinine 1.35, tbil 4.0, AST 67, ALT 18, ALP 131, albumin 1.6, BNP 434. CXR showed right side pleural effusion. Nephrology consulted for concern for HRS. b/c he was still making urine. He underwent paracentesis with 8.8L removed. Fluid reaccumulated and he had repeat paracentesis 06/17 with 4.7L removed, after which pt had some episode desaturation and hypotension. 06/17 he also had thoracentesis with 2.3L fluid removed. Subsequently pt developed respiratory distress and hypoxia on 12L o2 and was transferred to [facility]. CXR 06/17 indicated re-expansion pulmonary edema. Today CXR 06/18 shows decreasing effusion. His WBC is trending up. On my exam is he resting in bed, napping. He denies pain, SOB. He says he feels muhc better than when he came in. He is distended and his abd is quite tender to light palpation. He is lethargic and oriented x 3. Minimal insight into his condition, does not know he has cirrhosis. Function/Cognitive Trajectory: Pt has declined in the last few months. In the last few days prior to this admission he was dependent from ADLs 2/2 dyspnea and abd pain. Review of Systems limited ROS obtained from pt 2/2 lethargy. ROS done to best of my ability via chart review, discussion with family. Constitutional: Reports fatigue Eyes: Denies blind spots Ears, Nose, Mouth, and Throat: Denies abnormal hearing, Denies nosebleed Cardiovascular: Denies chest pain Respiratory: Reports shortness of breath, Reports shortness of breath with activity Gastrointestinal: Reports abdominal pain, Reports bloating, Reports bright, red blood in stools, Reports feeling full early Genitourinary: Reports blood in urine Musculoskeletal: Reports decreased muscle mass Skin/Breast: Denies bleeding lesions Neurologic: Reports confusion, Reports weakness, Denies abnormal speech Psychiatric: Denies anxiety Hematologic/Lymphatic: Denies enlarged lymph nodes [facility] - History History Provided By: Medical Record - Medical History Medical History: Medical History (Last Reviewed 06/17/18 @ 19:57 by Kane Downey MD) COPD (chronic obstructive pulmonary disease) Cirrhosis Myocardial infarct - Surgical History Surgical History: Surgical History (Last Reviewed 06/17/18 @ 19:57 by Kane Downey MD) S/P CABG (coronary artery bypass graft) - Family History Family History: Family History (Last Updated 06/18/18 @ 11:46 by SAMPSON Cintron) Mother Throat cancer Father Myocardial infarction - Social History I have reviewed the patient's Social History: Yes - Tobacco History Smoking Status: Former smoker - Alcohol History How Often Do You Have a Drink Containing Alcohol: 4 or more times a week - Substance Use History Substance History: No History of Abuse - Travel History Recent Travel in the [place] Within the Last 8 Weeks: No Recent Travel Out of the Country Within the Last 8 Weeks: No - Immunization History Tetanus Immunization: <5 Years Medications and Allergies Active Medications: Active Medications Aspirin (Aspirin Chew) 81 mg PO DAILY AARTI Last Admin: 06/17/18 09:01 Dose: 81 mg Magnesium Sulfate 4 gm/ Sodium (Chloride) 100 mls @ 50 mls/hr IV.SIG UNSCH PRN PRN Reason: For Magnesium 0.9 - 1.1 mg/dL Magnesium Sulfate 2 gm/ Sodium (Chloride) 100 mls @ 50 mls/hr IV.SIG UNSCH PRN PRN Reason: For Magnesium 1.2 - 1.6 mg/dL Potassium Chloride (Kcl 40 Meq Premix Inj) 40 meq in 100 mls @ 25 mls/hr IV.SIG Q2H PRN PRN Reason: For Potassium 2.8 - 3.2 mEq/L Potassium Chloride (Kcl 20 Meq Premix Inj) 20 meq in 100 mls @ 50 mls/hr IV.SIG Q2H PRN PRN Reason: For Potassium 3.3 - 3.5 mEq/L Potassium Chloride (Kcl 20 Meq Premix Inj) 20 meq in 100 mls @ 50 mls/hr IV.SIG Q2H PRN PRN Reason: For Potassium 2.8 - 3.2 mEq/L Potassium Phosphate 30 mmol/ (Sodium Chloride) 260 mls @ 42 mls/hr IV.SIG UNSCH PRN PRN Reason: SEE LABEL COMMENTS Sodium Phosphate 30 mmol/ (Sodium Chloride) 260 mls @ 42 mls/hr IV.SIG UNSCH PRN PRN Reason: For Phosphorus < 2.5 mg/dL Potassium Chloride (Kcl 40 Meq Premix Inj) 40 meq in 100 mls @ 25 mls/hr IV.SIG UNSCH PRN PRN Reason: For Potassium 3.3 - 3.5 mEq/L Magnesium Oxide (Mag-Ox) 800 mg PO UNSCH PRN PRN Reason: For Magnesium 1.2 - 1.6 mg/dL Potassium Bicarb/Potassium Chloride (K-Lyte Cl Eff) 50 meq PO UNSCH PRN PRN Reason: For Potassium 3.3 - 3.5 mEq/L Potassium Phosphate (K-Phos Original) 2,000 mg PO Q4H PRN PRN Reason: Phosphorus Less Than 2.5 mg/dL Potassium Phosphate (K-Phos Original) 2,000 mg PO UNSCH PRN PRN Reason: SEE LABEL COMMENTS Allergies Allergy/AdvReac Type Severity Reaction Status Date / Time No Known Allergies Allergy Verified 06/15/18 15:06 Home Medications Medication Instructions Recorded Confirmed Type No Known Home Medications 06/15/18 06/15/18 History Advance Directives Healthcare Surrogate: Yes (completed today) Health Care Surrogate Name and Number: joint [facility] 2 daughters Joan and Lee Family/friends goals: comfort Ethical and Legal Issues: Pt not clearly capacitated to make make medical decisions as he is lethargic and has poor insight. He has designated his 2 daughters as joint HCS. REcommend shared decision making. Physical Exam Vital Signs: Vital Signs - 24 hr 06/17/18 12:00 06/17/18 13:53 06/17/18 15:00 Temperature 97.8 F 98.1 F Pulse Rate 95 H 98 H 98 H Respiratory Rate 20 22 Blood Pressure 109/70 Pulse Oximetry 96 94 L 06/17/18 16:00 06/17/18 18:43 06/17/18 18:57 Temperature Pulse Rate 115 H Respiratory Rate 30 H Blood Pressure Pulse Oximetry 98 99 95 06/17/18 19:00 06/17/18 19:30 06/17/18 20:00 Temperature 98.7 F Pulse Rate 116 H 109 H 108 H Respiratory Rate 29 H 18 22 Blood Pressure 107/56 L 110/60 105/65 Pulse Oximetry 97 98 97 06/17/18 20:11 06/17/18 20:30 06/17/18 21:00 Temperature Pulse Rate 111 H 106 H Respiratory Rate 22 24 Blood Pressure 92/57 L 96/62 L Pulse Oximetry 96 96 95 06/17/18 21:30 06/17/18 22:00 06/17/18 22:01 Temperature Pulse Rate 108 H 107 H 111 H Respiratory Rate 18 22 28 H Blood Pressure 97/63 L 88/69 L Pulse Oximetry 96 96 97 06/17/18 22:30 06/17/18 23:00 06/17/18 23:30 Temperature Pulse Rate 106 H 110 H 104 H Respiratory Rate 16 26 H 17 Blood Pressure 100/61 97/58 L 99/58 L Pulse Oximetry 95 98 95 06/18/18 00:00 06/18/18 00:31 06/18/18 01:00 Temperature 98.3 F Pulse Rate 106 H 107 H 104 H Respiratory Rate 28 H 29 H 25 H Blood Pressure 102/59 L 97/52 L 97/59 L Pulse Oximetry 98 06/18/18 01:22 06/18/18 01:30 06/18/18 02:00 Temperature Pulse Rate 100 H 97 H Respiratory Rate 21 17 Blood Pressure 100/61 103/63 Pulse Oximetry 95 06/18/18 02:30 06/18/18 03:00 06/18/18 03:30 Temperature Pulse Rate 97 H 104 H 95 H Respiratory Rate 21 42 H 17 Blood Pressure 105/59 L 118/59 L 106/59 L Pulse Oximetry 92 L 98 06/18/18 04:00 06/18/18 04:01 06/18/18 04:25 Temperature 97.3 F L Pulse Rate 97 H 94 H Respiratory Rate 25 H 25 H Blood Pressure 118/64 118/64 Pulse Oximetry 96 80 L 95 06/18/18 04:30 06/18/18 05:00 06/18/18 05:30 Temperature Pulse Rate 93 H 95 H 93 H Respiratory Rate 20 24 21 Blood Pressure 116/68 99/75 L 107/65 Pulse Oximetry 99 96 98 06/18/18 06:00 06/18/18 06:31 06/18/18 07:00 Temperature Pulse Rate 96 H 98 H 89 Respiratory Rate 25 H 22 16 Blood Pressure 128/74 107/67 113/69 Pulse Oximetry 99 98 97 06/18/18 07:30 06/18/18 08:00 06/18/18 08:30 Temperature Pulse Rate 91 H 89 87 Respiratory Rate 25 H 17 21 Blood Pressure 118/75 117/70 127/74 Pulse Oximetry 96 95 98 06/18/18 09:00 06/18/18 09:40 06/18/18 10:00 Temperature Pulse Rate 97 H 96 H 93 H Respiratory Rate 25 H 28 H 20 Blood Pressure 130/84 110/80 Pulse Oximetry 100 97 06/18/18 11:00 Temperature Pulse Rate 90 Respiratory Rate 17 Blood Pressure Pulse Oximetry 85 L I&O: Intake & Output 06/16/18 06/17/18 06/18/18 06/19/18 06:59 06:59 06:59 06:59 Intake Total 1228 / 1228 1300 / 1300 Output Total 150 / 150 400 / 400 200 / 200 Balance 1078 / 1078 900 / 900 -200 / -200 Weight 59.5 kg 60.9 kg 57.5 kg Physical Exam: CONSTITUTIONAL/GENERAL: This is a frail appearing elderly man TUBES/LINES/DRAINS: vines, PIV SKIN: No jaundice, rashes, or lesions. No wounds seen anteriorly. Skin temperature appropriate. Not diaphoretic. HEAD: Atraumatic. Normocephalic. EYES: PERRL. Extraocular motions intact. subtle icterus. No injection or drainage. Fundi not examined. ENT: Hearing grossly normal. Nose without bleeding or purulent drainage. CARDIOVASCULAR: RRR without murmurs, gallops, or rubs. No JVD. Peripheral pulses symmetric. RESPIRATORY/CHEST: Symmetric, unlabored respirations. Clear to auscultation. Breath sounds equal bilaterally. No wheezes, rales, or rhonchi. GASTROINTESTINAL: Abdomen semifirm, distended with ascites, tender to light palpation. No hepato-splenomegaly, or palpable masses. + guarding. Bowel sounds present. GENITOURINARY: Without palpable bladder distension. Vines catheter in place. MUSCULOSKELETAL: Extremities without clubbing, cyanosis, or edema. No joint tenderness or effusion noted. +muscle wasting. No calf tenderness. No mottling or clubbing. NEUROLOGICAL: lethargic but oriented x 3. Motor and sensory grossly within normal limits. Follows commands. Moves all extremities. PSYCHIATRIC: limited insight. No obvious anxiety/depression. no apparent hallucinations or other psychotic thought process. Diagnostic Tests Laboratory: Laboratory Results - last 72 hr 06/15/18 06/15/18 06/15/18 15:54 15:54 15:54 WBC 6.5 RBC 2.63 L Hgb 10.0 L Hct 29.7 L MCV 113.0 H MCH 38.1 H MCHC 33.7 RDW 14.7 Plt Count 96 L MPV 9.7 Prelim Diff (Auto) Slide review pending Neut % (Auto) 66.1 Lymph % (Auto) 19.2 [place] % (Auto) 12.5 H Eos % (Auto) 1.6 Baso % (Auto) 0.6 Neut # (Auto) 4.3 Lymph # (Auto) 1.3 [place] # (Auto) 0.8 Eos # (Auto) 0.1 Baso # (Auto) 0.0 WBC Differential . Diff Scan Auto diff confirmed Differential Comment . Platelet Estimate Low L Platelet Morphology Normal Ovalocytes 1+ H [place] Cells 1+ H PT INR APTT Puncture Site Patient Temperature O2 Saturation ABG pH ABG pCO2 ABG pO2 ABG HCO3 ABG O2 Content ABG Base Excess ABG Methemoglobin Lazaro Test Hemoglobin Carboxyhemoglobin O2 Delivery Device Liter Flow Vent Setting Inspired O2 Critical Value Sodium 143 Potassium 2.9 L* Chloride 109 H Carbon Dioxide 24.1 Anion Gap 10 BUN 13 Creatinine 1.35 H Estimated GFR 65 L Random Glucose 84 Lactic Acid Calcium 8.6 Phosphorus Magnesium 1.6 Total Bilirubin 4.0 H AST 67 H ALT 18 Alkaline Phosphatase 131 H Total Creatine Kinase 120 CK-MB (CK-2) 2.3 Troponin I 0.04 B-Natriuretic Peptide 434 H Total Protein 8.6 H Albumin 1.6 L Urine Color Urine Clarity Urine pH Ur Specific [place] Urine Protein Urine Glucose (UA) Urine Ketones Urine Occult Blood Urine Nitrate Urine Bilirubin Urine Urobilinogen Ur Leukocyte Esterase Urine RBC Urine WBC Ur Squamous Epith Cells Urine Bacteria Hyaline Casts Urine Mucus Micro UA Comment Ur Microscopic Review Urine Culture Comments Ur Random Creatinine Ur Random Sodium Pleural RBC Pleural Nuc Cells Pleural Neutrophils Pleural Lymphocytes Pleural Basophils Pleural Histocytes Pleural Albumin 06/15/18 06/15/18 06/15/18 16:05 16:33 19:08 WBC RBC Hgb Hct MCV MCH MCHC RDW Plt Count MPV Prelim Diff (Auto) Neut % (Auto) Lymph % (Auto) [place] % (Auto) Eos % (Auto) Baso % (Auto) Neut # (Auto) Lymph # (Auto) [place] # (Auto) Eos # (Auto) Baso # (Auto) WBC Differential Diff Scan Differential Comment Platelet Estimate Platelet Morphology Ovalocytes Janes Cells PT 19.5 H INR 1.9 APTT 34.8 H Puncture Site Patient Temperature O2 Saturation ABG pH ABG pCO2 ABG pO2 ABG HCO3 ABG O2 Content ABG Base Excess ABG Methemoglobin Lazaro Test Hemoglobin Carboxyhemoglobin O2 Delivery Device Liter Flow Vent Setting Inspired O2 Critical Value Sodium Potassium Chloride Carbon Dioxide Anion Gap BUN Creatinine Estimated GFR Random Glucose Lactic Acid 2.8 H Calcium Phosphorus Magnesium Total Bilirubin AST ALT Alkaline Phosphatase Total Creatine Kinase CK-MB (CK-2) Troponin I B-Natriuretic Peptide Total Protein Albumin Urine Color Urine Clarity Urine pH Ur Specific [place] Urine Protein Urine Glucose (UA) Urine Ketones Urine Occult Blood Urine Nitrate Urine Bilirubin Urine Urobilinogen Ur Leukocyte Esterase Urine RBC Urine WBC Ur Squamous Epith Cells Urine Bacteria Hyaline Casts Urine Mucus Micro UA Comment Ur Microscopic Review Urine Culture Comments Ur Random Creatinine Ur Random Sodium Pleural RBC Pleural Nuc Cells Pleural Neutrophils Pleural Lymphocytes Pleural Basophils Pleural Histocytes Pleural Albumin 0.3 06/15/18 06/15/18 06/15/18 19:08 20:20 23:25 WBC RBC Hgb Hct MCV MCH MCHC RDW Plt Count MPV Prelim Diff (Auto) Neut % (Auto) Lymph % (Auto) [place] % (Auto) Eos % (Auto) Baso % (Auto) Neut # (Auto) Lymph # (Auto) [place] # (Auto) Eos # (Auto) Baso # (Auto) WBC Differential Diff Scan Differential Comment Platelet Estimate Platelet Morphology Ovalocytes [place] Cells PT INR APTT Puncture Site Patient Temperature O2 Saturation ABG pH ABG pCO2 ABG pO2 ABG HCO3 ABG O2 Content ABG Base Excess ABG Methemoglobin Lazaro Test Hemoglobin Carboxyhemoglobin O2 Delivery Device Liter Flow Vent Setting Inspired O2 Critical Value Sodium Potassium Chloride Carbon Dioxide Anion Gap BUN Creatinine Estimated GFR Random Glucose Lactic Acid 2.2 H Calcium Phosphorus Magnesium Total Bilirubin AST ALT Alkaline Phosphatase Total Creatine Kinase CK-MB (CK-2) Troponin I B-Natriuretic Peptide Total Protein Albumin Urine Color [place] Urine Clarity Clear Urine pH 5.0 Ur Specific [place] 1.018 Urine Protein Negative Urine Glucose (UA) Negative Urine Ketones Negative Urine Occult Blood Small H Urine Nitrate Negative Urine Bilirubin Negative Urine Urobilinogen 4 or greater Ur Leukocyte Esterase Negative Urine RBC 4 H Urine WBC 4 Ur Squamous Epith Cells 1 Urine Bacteria Rare H Hyaline Casts 1 Urine Mucus Few H Micro UA Comment Culture not ind Ur Microscopic Review Not Reportable Urine Culture Comments Culture not ind Ur Random Creatinine Ur Random Sodium Pleural RBC 66 H Pleural Nuc Cells 47 H Pleural Neutrophils 16 Pleural Lymphocytes 72 Pleural Basophils 1 Pleural Histocytes 11 Pleural Albumin 06/16/18 06/16/18 06/16/18 05:53 05:53 05:53 WBC 5.5 RBC 2.36 L Hgb 9.1 L Hct 26.6 L MCV 112.8 H MCH 38.5 H MCHC 34.2 RDW 14.7 Plt Count 79 L MPV 9.4 Prelim Diff (Auto) Slide review pending Neut % (Auto) 58.6 Lymph % (Auto) 24.0 [place] % (Auto) 14.8 H Eos % (Auto) 1.8 Baso % (Auto) 0.8 Neut # (Auto) 3.2 Lymph # (Auto) 1.3 [place] # (Auto) 0.8 Eos # (Auto) 0.1 Baso # (Auto) 0.0 WBC Differential . Diff Scan Auto diff confirmed Differential Comment . Platelet Estimate Low L Platelet Morphology Normal Ovalocytes Janes Cells PT INR APTT Puncture Site Patient Temperature O2 Saturation ABG pH ABG pCO2 ABG pO2 ABG HCO3 ABG O2 Content ABG Base Excess ABG Methemoglobin Lazaro Test Hemoglobin Carboxyhemoglobin O2 Delivery Device Liter Flow Vent Setting Inspired O2 Critical Value Sodium 145 Potassium 2.8 L* Chloride 110 H Carbon Dioxide 26.5 Anion Gap 9 BUN 12 Creatinine 1.25 Estimated GFR 71 L Random Glucose 81 Lactic Acid 2.2 H Calcium 8.8 Phosphorus Magnesium 2.3 D Total Bilirubin AST ALT Alkaline Phosphatase Total Creatine Kinase CK-MB (CK-2) Troponin I B-Natriuretic Peptide Total Protein Albumin Urine Color Urine Clarity Urine pH Ur Specific [place] Urine Protein Urine Glucose (UA) Urine Ketones Urine Occult Blood Urine Nitrate Urine Bilirubin Urine Urobilinogen Ur Leukocyte Esterase Urine RBC Urine WBC Ur Squamous Epith Cells Urine Bacteria Hyaline Casts Urine Mucus Micro UA Comment Ur Microscopic Review Urine Culture Comments Ur Random Creatinine Ur Random Sodium Pleural RBC Pleural Nuc Cells Pleural Neutrophils Pleural Lymphocytes Pleural Basophils Pleural Histocytes Pleural Albumin 06/16/18 06/17/18 06/17/18 22:00 05:32 17:44 WBC RBC Hgb Hct MCV MCH MCHC RDW Plt Count MPV Prelim Diff (Auto) Neut % (Auto) Lymph % (Auto) [place] % (Auto) Eos % (Auto) Baso % (Auto) Neut # (Auto) Lymph # (Auto) [place] # (Auto) Eos # (Auto) Baso # (Auto) WBC Differential Diff Scan Differential Comment Platelet Estimate Platelet Morphology Ovalocytes Janes Cells PT INR APTT Puncture Site Left radial Patient Temperature 98.6 O2 Saturation 94 ABG pH 7.43 H ABG pCO2 33 L ABG pO2 84 ABG HCO3 22 ABG O2 Content 14.6 ABG Base Excess -2.0 ABG Methemoglobin 1.3 Lazaro Test Present Hemoglobin 11.0 L Carboxyhemoglobin 1.1 O2 Delivery Device Prb Liter Flow 12.00 Vent Setting Inspired O2 Critical Value Yes Sodium 144 Potassium 3.9 D Chloride 110 H Carbon Dioxide 25.6 Anion Gap 8 BUN 12 Creatinine 1.32 H Estimated GFR 67 L Random Glucose 86 Lactic Acid Calcium 8.5 Phosphorus Magnesium 1.9 Total Bilirubin AST ALT Alkaline Phosphatase Total Creatine Kinase CK-MB (CK-2) Troponin I B-Natriuretic Peptide Total Protein Albumin Urine Color Urine Clarity Urine pH Ur Specific [place] Urine Protein Urine Glucose (UA) Urine Ketones Urine Occult Blood Urine Nitrate Urine Bilirubin Urine Urobilinogen Ur Leukocyte Esterase Urine RBC Urine WBC Ur Squamous Epith Cells Urine Bacteria Hyaline Casts Urine Mucus Micro UA Comment Ur Microscopic Review Urine Culture Comments Ur Random Creatinine 211 Ur Random Sodium 15 Pleural RBC Pleural Nuc Cells Pleural Neutrophils Pleural Lymphocytes Pleural Basophils Pleural Histocytes Pleural Albumin 06/18/18 06/18/18 06/18/18 04:19 05:24 08:23 WBC 13.5 H RBC 2.78 L Hgb 10.6 L Hct 31.3 L MCV 112.6 H MCH 38.0 H MCHC 33.7 RDW 14.9 Plt Count 78 L MPV 10.0 Prelim Diff (Auto) Neut % (Auto) Lymph % (Auto) [place] % (Auto) Eos % (Auto) Baso % (Auto) Neut # (Auto) Lymph # (Auto) [place] # (Auto) Eos # (Auto) Baso # (Auto) WBC Differential Diff Scan Differential Comment Platelet Estimate Platelet Morphology Ovalocytes Janes Cells PT INR APTT Puncture Site Left brachial Patient Temperature 98.6 O2 Saturation 95 ABG pH 7.48 H ABG pCO2 29 L ABG pO2 83 ABG HCO3 21 L ABG O2 Content 13.7 ABG Base Excess -1.6 ABG Methemoglobin 1.4 Lazaro Test Present Hemoglobin 10.2 L Carboxyhemoglobin 1.1 O2 Delivery Device Bipap Liter Flow Vent Setting [id number] Inspired O2 40 Critical Value No Sodium 146 H Potassium 4.0 Chloride 111 H Carbon Dioxide 23.0 Anion Gap 12 BUN 17 Creatinine 1.46 H Estimated GFR 59 L Random Glucose 75 Lactic Acid Calcium 8.5 Phosphorus 2.1 L Magnesium 1.8 Total Bilirubin 3.9 H AST 45 H ALT 12 Alkaline Phosphatase 71 Total Creatine Kinase CK-MB (CK-2) Troponin I B-Natriuretic Peptide Total Protein 6.0 L D Albumin 1.9 L Urine Color Urine Clarity Urine pH Ur Specific [place] Urine Protein Urine Glucose (UA) Urine Ketones Urine Occult Blood Urine Nitrate Urine Bilirubin Urine Urobilinogen Ur Leukocyte Esterase Urine RBC Urine WBC Ur Squamous Epith Cells Urine Bacteria Hyaline Casts Urine Mucus Micro UA Comment Ur Microscopic Review Urine Culture Comments Ur Random Creatinine Ur Random Sodium Pleural RBC Pleural Nuc Cells Pleural Neutrophils Pleural Lymphocytes Pleural Basophils Pleural Histocytes Pleural Albumin 06/18/18 08:23 WBC RBC Hgb Hct MCV MCH MCHC RDW Plt Count MPV Prelim Diff (Auto) Neut % (Auto) Lymph % (Auto) [place] % (Auto) Eos % (Auto) Baso % (Auto) Neut # (Auto) Lymph # (Auto) [place] # (Auto) Eos # (Auto) Baso # (Auto) WBC Differential Diff Scan Differential Comment Platelet Estimate Platelet Morphology Ovalocytes [place] Cells PT 23.2 H INR 2.3 APTT Puncture Site Patient Temperature O2 Saturation ABG pH ABG pCO2 ABG pO2 ABG HCO3 ABG O2 Content ABG Base Excess ABG Methemoglobin Lazaro Test Hemoglobin Carboxyhemoglobin O2 Delivery Device Liter Flow Vent Setting Inspired O2 Critical Value Sodium Potassium Chloride Carbon Dioxide Anion Gap BUN Creatinine Estimated GFR Random Glucose Lactic Acid Calcium Phosphorus Magnesium Total Bilirubin AST ALT Alkaline Phosphatase Total Creatine Kinase CK-MB (CK-2) Troponin I B-Natriuretic Peptide Total Protein Albumin Urine Color Urine Clarity Urine pH Ur Specific [place] Urine Protein Urine Glucose (UA) Urine Ketones Urine Occult Blood Urine Nitrate Urine Bilirubin Urine Urobilinogen Ur Leukocyte Esterase Urine RBC Urine WBC Ur Squamous Epith Cells Urine Bacteria Hyaline Casts Urine Mucus Micro UA Comment Ur Microscopic Review Urine Culture Comments Ur Random Creatinine Ur Random Sodium Pleural RBC Pleural Nuc Cells Pleural Neutrophils Pleural Lymphocytes Pleural Basophils Pleural Histocytes Pleural Albumin Result Diagrams: 06/18/18 08:23 06/18/18 04:19 Microbiology: Microbiology 06/15/18 16:05 Aerobic Blood Culture - Preliminary Blood - Peripheral No growth in 3 days Anaerobic Blood Culture - Preliminary No growth in 3 days 06/15/18 16:05 Aerobic Blood Culture - Preliminary Blood - Peripheral No growth in 3 days Anaerobic Blood Culture - Preliminary No growth in 3 days 06/15/18 19:08 Gram Stain - Final Fluid - Peritoneal fluid Body Fluid Culture - Final No growth in 72 hours (aerobically and anaerobically) Imaging: ITS Impressions Paracentesis Ultrasound 06/17/18 00:00 CONCLUSION: 1. 4.7 L of fluid was removed. 2. Following the paracentesis and thoracentesis the patient was somewhat hypotensive. The patient responded to a liter of normal saline was transferred back to the CICU in good condition. Thoracentesis Ultrasound 06/17/18 00:00 CONCLUSION: 1. Uncomplicated thoracentesis. Chest X-Ray 06/18/18 05:00 CONCLUSION: Decreasing right-sided effusion when compared with the prior study with diffuse edema versus pneumonia right greater than left. Procedures: 06/15 paracentesis 06/17 paracentesis 06/17 thoracentesis Patient/Family Conference Present at Family Conference: 2 daughters/BONNIE Muse Family Conference Time: 25 Family Conference Location: Telephone Issues Discussed: * Palliative care role, purpose, approach * Additional medical, psychosocial, and spiritual history * Patients general health, functional status, and cognitive changes in the months leading up to the current hospitalization * Patient/family understanding of the current medical problems - pt has limited insight * Patient/family understanding of prognosis - pt has limited insight; daughters realistic * Patients goals of care as best understood from advance directives and/or conversations and/or values * Current medical treatment options and benefits/burdens of those options * Likely scenarios comparing ongoing aggressive care with a transition to comfort measures only * code status - pending family discussion * Questions answered to the best of my ability * Palliative care contact information provided Pt designated 2 daughters as HCS. Goals seem to be comfort oriented. Daughters request hospice consult and verbalize repeatedly wanting their father to be comfortable. They are not ready to make a decision on code status and are going to have a big family discussion prior to tomorrow's meeting with hospice. Assessment and Plan - Disease Oriented Problem List (1) Pleural effusion (2) Cirrhosis of liver (3) Acute kidney injury (4) Hypokalemia (5) Alcohol abuse Pertinent Non-Medical Issues: Psychosocial: Pt lives at home with who is disabled from a stroke. He has 2 daughter. One lives in [place] and the other is home with him. Spiritual: no affiliation Legal: Pt not clearly capacitated to make make medical decisions as he is lethargic and has poor insight. He has designated his 2 daughters as joint HCS. REcommend shared decision making. Ethical issues impacting care:none Important Contacts: dtr Lee [phone] dtr Joan [phone] Prognosis: 63 y/o male with hx etoh cirrhosis, MS s/p CABG, COPD who presented with SOB, abd pain and distention, was found to have pleural effusion and ascites. He has already had 2 paracenteses and a thoracentesis. MELD 25, DF 55. He is in the end stage of liver disease and is decompensated. It is unclear if he could stabilize but given the mcpherson recurrence of his ascites, prognosis is poor. Hospice appropriate should goals be in line with comfort. Code Status: Full Code Plan: - LEGAL DECISION MAKER - Pt not clearly capacitated to make make medical decisions as he is lethargic and has poor insight. He has designated his 2 daughters as joint HCS. REcommend shared decision making. - CODE STATUS- full code - GOALS - Pt designated 2 daughters as HCS. Goals seem to be comfort oriented. Daughters request hospice consult and verbalize repeatedly wanting their father to be comfortable. They are not ready to make a decision on code status and are going to have a big family discussion prior to tomorrow's meeting with hospice. - SYMPTOMS - * pain - 2/2 abd distention. has had 2 paracenteses already, ascites recurrent. denies pain but tender on exam. If family elects hospice, recommend port to drain ascites continually. consider adding PRN pain medication * fluid excess - 2/2 cirrhosis, portal HTN. has had 2 paracenteses, may need drain * dyspnea - 2/2 pleural effusion, pressure from ascites. dyspneic on presentation. denies SOB on my eval. has o2 via NC. s/p thoracentesis, fluid returned but CXR today showing some improvement. consider PRN ativan for dyspnea - hospice consult is pending - Palliative care will continue to follow during hospital course as condition evolves, to assist patient/decision-maker with understanding of medical conditions, weighing benefits/burdens of treatment options, for clarification of goals of treatment. Additionally will assist with any symptoms of palliative concern Appreciation Thank you for the opportunity to participate in the care of Yaw Smith.
--- NOTE | 2018-06-18 12:28 | P.PNCC ---
Subjective Subjective Remarks/Hospital Course: 06/17: This is a 63-year-old male with end-stage liver disease who underwent large volume thoracentesis and paracentesis today. Immediately post procedure he was hypotensive and required IV fluid resuscitation as well as concentrated albumin. Now a few hours later he has worsening respiratory distress. He was emergently transferred to the ICU. On my evaluation he is tachypneic and in distress. Chest x-ray demonstrates new acute interstitial infiltrates only on the right side consistent with reexpansion pulmonary edema. Patient denies chest pain, fever, chills, other symptoms. Does endorse shortness of breath. Patient was placed on BiPAP. Remainder the review of systems is negative. 06/18: Resting comfortably this morning denies any shortness of breath. Not in any acute distress. On nasal cannula. Objective Vital Signs / I&O: Vital Signs 06/17/18 13:53 06/17/18 15:00 06/17/18 16:00 Temperature 98.1 F Pulse Rate 98 H 98 H Respiratory Rate 22 Blood Pressure 109/70 Pulse Oximetry 94 L 98 06/17/18 18:43 06/17/18 18:57 06/17/18 19:00 Temperature Pulse Rate 115 H 116 H Respiratory Rate 30 H 29 H Blood Pressure 107/56 L Pulse Oximetry 99 95 97 06/17/18 19:30 06/17/18 20:00 06/17/18 20:11 Temperature 98.7 F Pulse Rate 109 H 108 H Respiratory Rate 18 22 Blood Pressure 110/60 105/65 Pulse Oximetry 98 97 96 06/17/18 20:30 06/17/18 21:00 06/17/18 21:30 Temperature Pulse Rate 111 H 106 H 108 H Respiratory Rate 22 24 18 Blood Pressure 92/57 L 96/62 L 97/63 L Pulse Oximetry 96 95 96 06/17/18 22:00 06/17/18 22:01 06/17/18 22:30 Temperature Pulse Rate 107 H 111 H 106 H Respiratory Rate 22 28 H 16 Blood Pressure 88/69 L 100/61 Pulse Oximetry 96 97 95 06/17/18 23:00 06/17/18 23:30 06/18/18 00:00 Temperature 98.3 F Pulse Rate 110 H 104 H 106 H Respiratory Rate 26 H 17 28 H Blood Pressure 97/58 L 99/58 L 102/59 L Pulse Oximetry 98 95 98 06/18/18 00:31 06/18/18 01:00 06/18/18 01:22 Temperature Pulse Rate 107 H 104 H Respiratory Rate 29 H 25 H Blood Pressure 97/52 L 97/59 L Pulse Oximetry 95 06/18/18 01:30 06/18/18 02:00 06/18/18 02:30 Temperature Pulse Rate 100 H 97 H 97 H Respiratory Rate 21 17 21 Blood Pressure 100/61 103/63 105/59 L Pulse Oximetry 92 L 06/18/18 03:00 06/18/18 03:30 06/18/18 04:00 Temperature 97.3 F L Pulse Rate 104 H 95 H 97 H Respiratory Rate 42 H 17 25 H Blood Pressure 118/59 L 106/59 L 118/64 Pulse Oximetry 98 96 06/18/18 04:01 06/18/18 04:25 06/18/18 04:30 Temperature Pulse Rate 94 H 93 H Respiratory Rate 25 H 20 Blood Pressure 118/64 116/68 Pulse Oximetry 80 L 95 99 06/18/18 05:00 06/18/18 05:30 06/18/18 06:00 Temperature Pulse Rate 95 H 93 H 96 H Respiratory Rate 24 21 25 H Blood Pressure 99/75 L 107/65 128/74 Pulse Oximetry 96 98 99 06/18/18 06:31 06/18/18 07:00 06/18/18 07:30 Temperature Pulse Rate 98 H 89 91 H Respiratory Rate 22 16 25 H Blood Pressure 107/67 113/69 118/75 Pulse Oximetry 98 97 96 06/18/18 08:00 06/18/18 08:30 06/18/18 09:00 Temperature Pulse Rate 89 87 97 H Respiratory Rate 17 21 25 H Blood Pressure 117/70 127/74 130/84 Pulse Oximetry 95 98 100 06/18/18 09:40 06/18/18 10:00 06/18/18 11:00 Temperature Pulse Rate 96 H 93 H 90 Respiratory Rate 28 H 20 17 Blood Pressure 110/80 Pulse Oximetry 97 85 L Intake & Output 06/17/18 06/18/18 06/18/18 18:59 06:59 18:59 Output Total 200 / 200 Balance -200 / -200 Weight 57.5 kg Output: Urine Amount (Catheter) 200 / 200 Straight 200 / 200 Other: Date of Last Bowel Movement 06/17/18 Result Diagrams: 06/18/18 08:23 06/18/18 04:19 Imaging: Impressions Chest X-Ray 06/16/18 00:00 CONCLUSION: 1. The right hemithorax remains completely opacified. 2. Mild hazy opacity in the left lung with no focal consolidation. 3. Status post median sternotomy. Chest X-Ray 06/17/18 00:00 CONCLUSION: Diffuse infiltrate in the right upper lobe status post thoracentesis. Likely reexpansion pulmonary edema. Small residual pleural effusion remains. Paracentesis Ultrasound 06/17/18 00:00 CONCLUSION: 1. 4.7 L of fluid was removed. 2. Following the paracentesis and thoracentesis the patient was somewhat hypotensive. The patient responded to a liter of normal saline was transferred back to the CICU in good condition. Thoracentesis Ultrasound 06/17/18 00:00 CONCLUSION: 1. Uncomplicated thoracentesis. Chest X-Ray 06/18/18 05:00 CONCLUSION: Decreasing right-sided effusion when compared with the prior study with diffuse edema versus pneumonia right greater than left. Objective Remarks: GENERAL: Cachectic and frail middle-age male who appears much older than stated age, lying in bed, in no acute distress HEENT: Normocephalic. Atraumatic. Pupils equal, round, reactive, conjugate. Mucous membranes are moist NECK: Trachea is midline. There is no JVD. CHEST: Good air entry bilaterally scattered rhonchi, no wheezing CARDIOVASCULAR: Normal rate, regular rhythm. Sinus. ABDOMEN: Soft, nontender, nondistended. No guarding. MUSCULOSKELETAL: Pulses 2+. No peripheral edema. NEUROLOGICAL: Awake alert oriented x3, follows commands. no focal deficits. Assessment and Plan - Assessment and Plan Plan: Assessment: 63-year-old male with end-stage liver disease and right-sided pleural effusion associated with his large volume ascites and end-stage liver disease. Now status post large volume thoracentesis and paracentesis with acute reexpansion pulmonary edema leading to acute hypoxic respiratory failure. In response to his end-stage liver disease, his MELD is 22 and he is quite chronically ill. 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 Will consult palliative care to assist with long-term goals of care, as I do not think his overall prognosis is good long-term. 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 Palliative care following. Critical care will be signing off at this time, please reconsult if needed.
--- NOTE | 2018-06-18 13:57 | P.PNNP ---
Subjective Interval history: Patient was seen resting in bed, no complaints. Patient's renal function continues to decline. Patient stated he is making urine. Patient had thoracentesis and paracentesis today. Palliative care has been consulted. <Mike Willis - Last Filed: 06/18/18 13:57> Physical Exam Vital signs: Vital Signs 06/17/18 13:53 06/17/18 15:00 06/17/18 16:00 Temperature 98.1 F Pulse Rate 98 H 98 H Respiratory Rate 22 Blood Pressure 109/70 Pulse Oximetry 94 L 98 06/17/18 18:43 06/17/18 18:57 06/17/18 19:00 Temperature Pulse Rate 115 H 116 H Respiratory Rate 30 H 29 H Blood Pressure 107/56 L Pulse Oximetry 99 95 97 06/17/18 19:30 06/17/18 20:00 06/17/18 20:11 Temperature 98.7 F Pulse Rate 109 H 108 H Respiratory Rate 18 22 Blood Pressure 110/60 105/65 Pulse Oximetry 98 97 96 06/17/18 20:30 06/17/18 21:00 06/17/18 21:30 Temperature Pulse Rate 111 H 106 H 108 H Respiratory Rate 22 24 18 Blood Pressure 92/57 L 96/62 L 97/63 L Pulse Oximetry 96 95 96 06/17/18 22:00 06/17/18 22:01 06/17/18 22:30 Temperature Pulse Rate 107 H 111 H 106 H Respiratory Rate 22 28 H 16 Blood Pressure 88/69 L 100/61 Pulse Oximetry 96 97 95 06/17/18 23:00 06/17/18 23:30 06/18/18 00:00 Temperature 98.3 F Pulse Rate 110 H 104 H 106 H Respiratory Rate 26 H 17 28 H Blood Pressure 97/58 L 99/58 L 102/59 L Pulse Oximetry 98 95 98 06/18/18 00:31 06/18/18 01:00 06/18/18 01:22 Temperature Pulse Rate 107 H 104 H Respiratory Rate 29 H 25 H Blood Pressure 97/52 L 97/59 L Pulse Oximetry 95 06/18/18 01:30 06/18/18 02:00 06/18/18 02:30 Temperature Pulse Rate 100 H 97 H 97 H Respiratory Rate 21 17 21 Blood Pressure 100/61 103/63 105/59 L Pulse Oximetry 92 L 06/18/18 03:00 06/18/18 03:30 06/18/18 04:00 Temperature 97.3 F L Pulse Rate 104 H 95 H 97 H Respiratory Rate 42 H 17 25 H Blood Pressure 118/59 L 106/59 L 118/64 Pulse Oximetry 98 96 06/18/18 04:01 06/18/18 04:25 06/18/18 04:30 Temperature Pulse Rate 94 H 93 H Respiratory Rate 25 H 20 Blood Pressure 118/64 116/68 Pulse Oximetry 80 L 95 99 06/18/18 05:00 06/18/18 05:30 06/18/18 06:00 Temperature Pulse Rate 95 H 93 H 96 H Respiratory Rate 24 21 25 H Blood Pressure 99/75 L 107/65 128/74 Pulse Oximetry 96 98 99 06/18/18 06:31 06/18/18 07:00 06/18/18 07:30 Temperature Pulse Rate 98 H 89 91 H Respiratory Rate 22 16 25 H Blood Pressure 107/67 113/69 118/75 Pulse Oximetry 98 97 96 06/18/18 08:00 06/18/18 08:30 06/18/18 09:00 Temperature Pulse Rate 89 87 97 H Respiratory Rate 17 21 25 H Blood Pressure 117/70 127/74 130/84 Pulse Oximetry 95 98 100 06/18/18 09:40 06/18/18 10:00 06/18/18 11:00 Temperature Pulse Rate 96 H 93 H 90 Respiratory Rate 28 H 20 17 Blood Pressure 110/80 Pulse Oximetry 97 85 L 06/18/18 12:00 06/18/18 13:00 Temperature 97.8 F Pulse Rate 92 H 89 Respiratory Rate 18 20 Blood Pressure Pulse Oximetry 95 76 L Intake & Output 06/17/18 06/18/18 06/18/18 18:59 06:59 18:59 Output Total 200 / 200 Balance -200 / -200 Weight 57.5 kg Output: Urine Amount (Catheter) 200 / 200 Straight 200 / 200 Other: Date of Last Bowel Movement 06/17/18 06/18/18 - Constitutional no acute distress - Routine HEENT Exam Head: Present: normocephalic Eye: Present: EOMI - Routine Neck Exam Present: swelling, trachea midline - Routine Respiratory Exam Present: accessory muscle use, decreased breath sounds - Routine Cardiovascular Exam Present: RRR - Routine Abdominal Exam Present: distended, firm. Absent: soft - Routine Exam Comments: Patient had a condom cath on. - Urinary Catheter Management Straight Cath placed during this visit: no Urethral indwelling: No <Mike Willis - Last Filed: 06/18/18 13:57> Vital signs: Vital Signs 06/17/18 18:43 06/17/18 18:57 06/17/18 19:00 Temperature Pulse Rate 115 H 116 H Respiratory Rate 30 H 29 H Blood Pressure 107/56 L Pulse Oximetry 99 95 97 06/17/18 19:30 06/17/18 20:00 06/17/18 20:11 Temperature 98.7 F Pulse Rate 109 H 108 H Respiratory Rate 18 22 Blood Pressure 110/60 105/65 Pulse Oximetry 98 97 96 06/17/18 20:30 06/17/18 21:00 06/17/18 21:30 Temperature Pulse Rate 111 H 106 H 108 H Respiratory Rate 22 24 18 Blood Pressure 92/57 L 96/62 L 97/63 L Pulse Oximetry 96 95 96 06/17/18 22:00 06/17/18 22:01 06/17/18 22:30 Temperature Pulse Rate 107 H 111 H 106 H Respiratory Rate 22 28 H 16 Blood Pressure 88/69 L 100/61 Pulse Oximetry 96 97 95 06/17/18 23:00 06/17/18 23:30 06/18/18 00:00 Temperature 98.3 F Pulse Rate 110 H 104 H 106 H Respiratory Rate 26 H 17 28 H Blood Pressure 97/58 L 99/58 L 102/59 L Pulse Oximetry 98 95 98 06/18/18 00:31 06/18/18 01:00 06/18/18 01:22 Temperature Pulse Rate 107 H 104 H Respiratory Rate 29 H 25 H Blood Pressure 97/52 L 97/59 L Pulse Oximetry 95 06/18/18 01:30 06/18/18 02:00 06/18/18 02:30 Temperature Pulse Rate 100 H 97 H 97 H Respiratory Rate 21 17 21 Blood Pressure 100/61 103/63 105/59 L Pulse Oximetry 92 L 06/18/18 03:00 06/18/18 03:30 06/18/18 04:00 Temperature 97.3 F L Pulse Rate 104 H 95 H 97 H Respiratory Rate 42 H 17 25 H Blood Pressure 118/59 L 106/59 L 118/64 Pulse Oximetry 98 96 06/18/18 04:01 06/18/18 04:25 06/18/18 04:30 Temperature Pulse Rate 94 H 93 H Respiratory Rate 25 H 20 Blood Pressure 118/64 116/68 Pulse Oximetry 80 L 95 99 06/18/18 05:00 06/18/18 05:30 06/18/18 06:00 Temperature Pulse Rate 95 H 93 H 96 H Respiratory Rate 24 21 25 H Blood Pressure 99/75 L 107/65 128/74 Pulse Oximetry 96 98 99 06/18/18 06:31 06/18/18 07:00 06/18/18 07:30 Temperature Pulse Rate 98 H 89 91 H Respiratory Rate 22 16 25 H Blood Pressure 107/67 113/69 118/75 Pulse Oximetry 98 97 96 06/18/18 08:00 06/18/18 08:30 06/18/18 09:00 Temperature Pulse Rate 89 87 97 H Respiratory Rate 17 21 25 H Blood Pressure 117/70 127/74 130/84 Pulse Oximetry 95 98 100 06/18/18 09:40 06/18/18 10:00 06/18/18 11:00 Temperature Pulse Rate 96 H 93 H 90 Respiratory Rate 28 H 20 17 Blood Pressure 110/80 Pulse Oximetry 97 85 L 06/18/18 12:00 06/18/18 13:00 06/18/18 16:00 Temperature 97.8 F 97.4 F L Pulse Rate 92 H 89 95 H Respiratory Rate 18 20 16 Blood Pressure 122/67 Pulse Oximetry 95 76 L 93 L 06/18/18 17:21 Temperature Pulse Rate Respiratory Rate Blood Pressure Pulse Oximetry 92 L Intake & Output 06/17/18 06/18/18 06/18/18 18:59 06:59 18:59 Intake Total 260 / 260 Output Total 200 / 200 Balance -200 / -200 260 / 260 Weight 57.5 kg 57.5 kg Intake: Oral 260 / 260 Output: Urine Amount (Catheter) 200 / 200 Straight 200 / 200 Other: Date of Last Bowel Movement 06/17/18 06/18/18 # Bowel Movements 1 Weight On Admission 57.5 kg - Urinary Catheter Management Straight Cath placed during this visit: no <Yoshi Vasquez - Last Filed: 06/18/18 17:58> Assessment and Plan - Assessment (1) Acute kidney injury Code(s): N17.9 - Acute kidney failure, unspecified Status: Acute Plan: Slight increase in creatinine. It is possible that there was increased renal vein pressure due to tense ascites. Very poor prognosis. Hepatorenal syndrome is a diagnosis of exclusion. He may still have type 2 hepatorenal syndrome. Avoid nephrotoxic agents. (2) Cirrhosis of liver Code(s): K74.60 - Unspecified cirrhosis of liver Status: Acute Plan: patient has history of ETOH abuse. Likely has alcoholic cirrhosis. Management per hospitalist. (3) Ascites Code(s): R18.8 - Other ascites Status: Acute Plan: due to portal hypertension. It is transudative. (4) Alcohol abuse Code(s): F10.10 - Alcohol abuse, uncomplicated Status: Acute Plan: cessation was advised. (5) Hypokalemia Code(s): E87.6 - Hypokalemia Status: Acute Plan: Replacement has been ordered. Replace Magnesium if needed. Etiology is unclear, could have been due to GI losses: vomiting. He did have mild hypomagnesemia: likely due to ETOH use. Hypomagnesemia can secondarily cause hypokalemia. (6) Pleural effusion Code(s): J90 - Pleural effusion, not elsewhere classified Status: Acute Plan: thoracentesis done 06/18/18. <Mike Willis - Last Filed: 06/18/18 13:57> - Assessment (1) Acute kidney injury Code(s): N17.9 - Acute kidney failure, unspecified Status: Acute (2) Cirrhosis of liver Code(s): K74.60 - Unspecified cirrhosis of liver Status: Acute (3) Ascites Code(s): R18.8 - Other ascites Status: Acute (4) Alcohol abuse Code(s): F10.10 - Alcohol abuse, uncomplicated Status: Acute (5) Hypokalemia Code(s): E87.6 - Hypokalemia Status: Acute (6) Pleural effusion Code(s): J90 - Pleural effusion, not elsewhere classified Status: Acute - Attending Attestation patient was seen and examined. Agree with above assessment and plan. Had 2300 ml of pleural fluid and 4700 ml of ascitic fluid tapped yesterday. Renal function is worse. Will add Albumin. His prognosis is very poor. Hospice is appropriate. <Yoshi Vasquez - Last Filed: 06/18/18 17:58>
[2018-06-18] MEDS: Albumin Human 25% Inj 100 ML IV.SIG SCH (22:33)
[2018-06-19] MEDS: Albumin Human 25% Inj 100 ML IV.SIG SCH ×2 (03:27→10:49)
--- NOTE | 2018-06-19 10:20 | P.PN ---
Subjective Interval history: Follow up ESLD, ascites, pleural effusion, s/p thoracentesis and paracentesis, s /p re-expansion pulm edema and resp. failure Patient is a transfer from ICU. On 06/17-patient underwent thoracentesis for large right-sided pleural effusion as well as large volume paracentesis. Postprocedure he had pulmonary edema secondary to reexpansion that led to acute hypoxic respiratory failure. Front Office Help were consulted, patient was transferred to ICU and he was put on BiPAP. Palliative services was consulted and has discussed with patient's daughters, hospice consult pending today. Patient seen and examined. Pt. restless, on room air. Sats 91-92% on 2 L. Difficult to assess, slaps my hands as I try to assess him. When asked if he is in pain, he points to his abdomen. Unable to obtain ROS. No family at bedside. 1400-went back to speak to family at length, and daughters present. They met with hospice, one daughter wants to ask one more family member and then most likely will choose for hospice. Doesn't want to sign DNR until he goes to hospice. Explained that pt. can decompensate quickly as he did 2 days ago. Did discuss in detail that as full code if he decompensates we would have to perform CPR/poss. intubated and likely prolong his suffering. Daughter who is spokesperson wants to wait until she speaks to other family member to decide on code status. Physical Exam Vital signs: Vital Signs 06/18/18 10:00 06/18/18 11:00 06/18/18 12:00 Temperature 97.8 F Pulse Rate 93 H 90 92 H Respiratory Rate 20 17 18 Blood Pressure Pulse Oximetry 85 L 95 06/18/18 13:00 06/18/18 16:00 06/18/18 17:21 Temperature 97.4 F L Pulse Rate 89 95 H Respiratory Rate 20 16 Blood Pressure 122/67 Pulse Oximetry 76 L 93 L 92 L 06/18/18 19:00 06/18/18 20:00 06/19/18 00:00 Temperature 97.5 F L 97.3 F L Pulse Rate 109 H 107 H Respiratory Rate 18 18 Blood Pressure 118/56 L 111/56 L Pulse Oximetry 92 L 90 L 92 L 06/19/18 08:00 Temperature 97.7 F Pulse Rate 106 H Respiratory Rate 19 Blood Pressure 108/63 Pulse Oximetry 91 L Intake & Output 06/18/18 06/19/18 06/19/18 18:59 06:59 18:59 Intake Total 500 / 500 200 / 200 Output Total 300 / 300 150 / 150 Balance 200 / 200 50 / 50 Weight 57.5 kg 57.1 kg Intake: IV 200 / 200 Flexbumin 25% Inj 100 ML @ 60 200 / 200 mls/hr IV.SIG Q8H AARTI Rx#: [id number] Oral 500 / 500 Output: Urine 300 / 300 150 / 150 Other: # Incontinent Voids 1 Date of Last Bowel Movement 06/18/18 06/18/18 # Bowel Movements 1 Weight On Admission 57.5 kg Narrative: GENERAL: 63-year-old cachectic, frail appearing male, chronically ill- appearing. Appears older than stated age. SKIN: Poor turgor, cool and dry HEAD: Atraumatic. Normocephalic. EYES: Pupils equal and round. ENT: No nasal bleeding or discharge. Mucous membranes pink and moist. NECK: Trachea midline. No JVD. CARDIOVASCULAR: Regular rate and rhythm. RESPIRATORY: Difficult to assess, patient slapping my hands as I place stethoscope. GASTROINTESTINAL: Abdomen distended, dressing to right lower quadrant from recent paracentesis. Diffuse tenderness. Voluntary guarding peer MUSCULOSKELETAL: No joint abnormalities, bilateral upper and lower extremity muscle atrophy. No peripheral edema. NEUROLOGICAL: Patient is awake, restless, verbalizing very little, difficult to assess. Moves all extremities. PSYCHIATRIC: Unable to assess - Urinary Catheter Management Straight Cath placed during this visit: no Urethral indwelling: No Results - Labs CBC & Chem 7: 06/18/18 08:23 06/18/18 04:19 Microbiology 06/15/18 16:05 Blood - Peripheral Aerobic Blood Culture - Preliminary No growth in 3 days 06/15/18 16:05 Blood - Peripheral Anaerobic Blood Culture - Preliminary No growth in 3 days 06/15/18 16:05 Blood - Peripheral Aerobic Blood Culture - Preliminary No growth in 3 days 06/15/18 16:05 Blood - Peripheral Anaerobic Blood Culture - Preliminary No growth in 3 days 06/15/18 19:08 Fluid - Peritoneal fluid Gram Stain - Final 06/15/18 19:08 Fluid - Peritoneal fluid Body Fluid Culture - Final No growth in 72 hours (aerobically and anaerobically ) Assessment and Plan - Assessment (1) End stage liver disease Code(s): K72.90 - Hepatic failure, unspecified without coma Status: Chronic (2) Acute kidney injury Code(s): N17.9 - Acute kidney failure, unspecified Status: Acute (3) Cirrhosis of liver Code(s): K74.60 - Unspecified cirrhosis of liver Status: Chronic (4) Ascites Code(s): R18.8 - Other ascites Status: Chronic (5) Pleural effusion Code(s): J90 - Pleural effusion, not elsewhere classified Status: Acute (6) Dyspnea Code(s): R06.00 - Dyspnea, unspecified Status: Acute (7) Coagulopathy Code(s): D68.9 - Coagulation defect, unspecified Status: Acute - Plan 63-year-old -[place] male with end-stage liver disease, alcoholic liver cirrhosis, frequent paracentesis. Presented with complaint of abdominal pain and worsening abdominal distention. In the emergency room, patient was found with elevated lactic acid, hypoxia, severe abdominal ascites. Status post acute hypoxic respiratory failure secondary to reexpansion pulmonary edema Status post right thoracentesis for right-sided pleural effusion, 2300 drained pt. went to ICU on 06/17, put on BIPAP. Currently on RA, sats 92. n -Oxygen as needed to keep sats greater than 92 Status post large volume paracentesis x 2 06/16-4700 and 06/17, 8800 cc drained. 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 Hospice consult pending -Poor prognosis ENOCH -appreciate nephrology input -creat 1.46 -Continue with albumin Hypernatremia Pt. likely dehydrated, not taking much PO -will hydrate cautiously with D5W at 42/hr -follow labs in am Leukocytosis and Lactic acidosis, initially with concern of SIRS cultures negative, afebrile Concern for SBP, was on abx, which have been stopped -WBC trending down -monitor for now Coagulopathy INR 2.3 Monitor for bleeding Monitor CBC History of CAD and CABG in 2016 Continue to monitor for now. Avoid anticoagulation for DVT prophylaxis secondary to coagulopathy Overall poor prognosis, pt hospice appropriate. Will wait for hospice to meet with family. Code Status: Full code Discussed Condition With: RN, attempted to speak to pt. Discharge Planning: Pt. hospice appropriate, remains full code. Palliative care following Hospice consult in place. (3) Cirrhosis of liver Qualifiers: Hepatic cirrhosis type: alcoholic cirrhosis (4) Ascites Qualifiers: Ascites type: due to alcoholic cirrhosis Qualified Code(s): K70.31 - Alcoholic cirrhosis of liver with ascites (6) Dyspnea Qualifiers: Dyspnea type: acute respiratory distress Qualified Code(s): R06.03 - Acute respiratory distress
[2018-06-19] MEDS ORDERED: Dextrose 5% in Water Inj 1,000 ML IV.CONT SCH (10:30)
--- NOTE | 2018-06-19 17:28 | P.DS ---
Date of admission: 06/15/18 17:17 Primary care physician: No Primary Care Physician Attending physician on discharge: Clayton Alonso Anticipated date of discharge: 06/19/18 Brief History from admission: This patient is a 63-year-old male with a diagnosis of alcoholic liver cirrhosis who presents to our emergency department with complaints of abdominal pain and worsening abdominal distention over the past 2 weeks. He has also been having worsening shortness of breath and has been unable to lie flat and sleep comfortably. Given his symptoms he came into our emergency department for evaluation and care. He denies having any fevers or chills. He denies black stools, he has noticed a minimal amount of on and off blood in his stool, he also states he noticed a pinkish tinge in his urine. He denies chest pain, no diarrhea. The patient denies any history of SBP. He has a poor historian, he does not have any other complaints. Past medical history alcoholic liver cirrhosis Past surgical history patient states he had open heart surgery however he is a poor historian and is not sure what type of surgery he had. Family history noncontributory Social history the patient has a an extensive history of tobacco smoking and alcohol use. His last alcoholic drink was 3 weeks ago. DS: Diagnosis - Discharge Diagnosis (1) End stage liver disease Status: Chronic (2) Acute kidney injury Status: Acute (3) Cirrhosis of liver Status: Chronic (4) Ascites Status: Chronic (5) Pleural effusion Status: Acute (6) Dyspnea Status: Acute (7) Coagulopathy Status: Acute DS: Summary Hospital Course: 63-year-old -[place] male with end-stage liver disease, alcoholic liver cirrhosis, frequent paracentesis, CAD and CABG. Presented with complaint of abdominal pain and worsening abdominal distention. In the emergency room, patient was found with elevated lactic acid, hypoxia, severe abdominal ascites. Patient initially admitted with SIRS, possibly SBP. Was put on antibiotics. He was also found coagulopathic with elevated INR. Underwent paracentesis on June 16, had 4700 drained. He was under an acute kidney injury and nephrology was consulted. Patient was put on albumin. He developed ascites again, on 06 17 he underwent large volume paracentesis and 8800 over drain. He did receive albumin prior. He also was noted with increasing right pleural effusion and had 2300 drained. After procedure, patient went into respiratory distress secondary to reexpansion pulmonary edema. He became hypotensive as well. He was fluid resuscitated and was given more albumin. He was transferred to ICU with wool shearer consultation. He was put on BiPAP. Patient stabilized and was transitioned to nasal cannula. Patient with significant end-stage liver disease, MELD score 22, Child-Canales C. Palliative care met with patient's family and consultation was put with hospice. Patient remained confused, overall poor prognosis. Initially family reluctant to transition to hospice services. Patient was a full code. Family eventually decided to proceed with hospice services and he was discharged home with hospice. - Time Spent with Patient Total time spent providing and/or coordinating discharge services: 40 minutes Greater than 30 minutes - Quality: VTE Deep Vein Thrombosis/Pulmonary Embolism Present on Admission: No Exam Vital signs: Vital Signs 06/18/18 19:00 06/18/18 20:00 06/19/18 00:00 Temperature 97.5 F L 97.3 F L Pulse Rate 109 H 107 H Respiratory Rate 18 18 Blood Pressure 118/56 L 111/56 L Pulse Oximetry 92 L 90 L 92 L 06/19/18 08:00 Temperature 97.7 F Pulse Rate 106 H Respiratory Rate 19 Blood Pressure 108/63 Pulse Oximetry 91 L Intake & Output 06/18/18 06/19/18 06/19/18 18:59 06:59 18:59 Intake Total 500 / 500 200 / 200 100 / 100 Output Total 300 / 300 150 / 150 Balance 200 / 200 50 / 50 100 / 100 Weight 57.5 kg 57.1 kg Intake: IV 200 / 200 100 / 100 Flexbumin 25% Inj 100 ML @ 60 200 / 200 100 / 100 mls/hr IV.SIG Q8H AARTI Rx#: [id number] Oral 500 / 500 Output: Urine 300 / 300 150 / 150 Other: # Voids 1 # Incontinent Voids 1 Date of Last Bowel Movement 06/18/18 06/18/18 # Bowel Movements 1 Weight On Admission 57.5 kg Results Procedures completed during hospitalization: Status post right thoracentesis for right-sided pleural effusion, 2300 drained Status post large volume paracentesis x 2 06/16-4700 and 06/17, 8800 cc drained. Labs on day of discharge: Preliminary micro results at discharge 06/15/18 16:05 Aerobic Blood Culture - Preliminary Blood - Peripheral No growth in 4 days Anaerobic Blood Culture - Preliminary No growth in 4 days 06/15/18 16:05 Aerobic Blood Culture - Preliminary Blood - Peripheral No growth in 4 days Anaerobic Blood Culture - Preliminary No growth in 4 days - Impressions ITS Impressions Paracentesis Ultrasound 06/17/18 00:00 CONCLUSION: 1. 4.7 L of fluid was removed. 2. Following the paracentesis and thoracentesis the patient was somewhat hypotensive. The patient responded to a liter of normal saline was transferred back to the CICU in good condition. Thoracentesis Ultrasound 06/17/18 00:00 CONCLUSION: 1. Uncomplicated thoracentesis. Chest X-Ray 06/18/18 05:00 CONCLUSION: Decreasing right-sided effusion when compared with the prior study with diffuse edema versus pneumonia right greater than left. Discharge Plan - Discharge Disposition Patient Disposition: 50 Hospice/Home - Discharge Condition Condition: Stable - Discharge Order Discharge Orders: Discharge Order (Routine); Ordered 06/19/18 Ordered By: Mile Sawyer - Discharge Details Anticipated Discharge Date: 06/19/18 - Physicians Team Primary Care Provider: Primary Care Moni Bunch Attending Provider: Clayton Alonso Other Providers: Yoshi Vasquez MD ; Becki Rivera MD
[2018-06-19] MEDS ORDERED: Furosemide 20 MG Tablet PO SCH (18:00)
== END 2018-06-19 18:05 | disposition hospice, home (50) ==
LOC: NEPC 14:56 → NEDA 17:17 → NEDH 21:32 → HCIS 22:27 → HIMC 06-17 18:30 → N06 06-18 16:10
PROVIDERS: ADMIT Family Medicine; ATTEND Family Medicine